=== PATIENT | male | born 1950 | race Caucasian/White ===

== ENCOUNTER 2022-08-20 17:00 | Inpatient (IN) ==
[2022-08-20] MEDS ORDERED: SODIUM CHLORIDE 0.9% 1000ML 1,000 ML IV ONE ×2 (17:46→18:21)
[2022-08-20 17:57] LABS: Alanine Aminotransferase 42 U/L (7-52); Albumin Globulin Ratio 1.3 (0.9-2); Albumin Level 3.7 gm/dl (3.4-5.0); Alkaline Phosphatase 70 U/L (34-104); Anion Gap 13 (3-11); Aspartate Aminotransferase 55 U/L (13-39); BUN Creatinine Ratio 15.7 (10-20); Bilirubin,Total 2.7 mg/dl (0.2-1.0); Blood Urea Nitrogen 40 mg/dl (6-23); Calcium 8.6 mg/dl (8.6-10.3); Carbon Dioxide 20 mmol/L (21-32); Chloride 97 mmol/L (98-107); Est GFR (African American) 27.6 ml/min; Est GFR (Non-African American) 23.8 ml/min; Globulin 2.8 gm/dl (2.5-4.0); Glucose 193 mg/dl (70-99(Fasting)); Potassium 4.5 mmol/L (3.5-5.1); Sodium 130 mmol/L (136-145); Total Protein 6.5 gm/dl (6.0-8.3)
[2022-08-20 18:08] LABS: Troponin I High Sensitivity 69.5 pg/ml (0-20)
[2022-08-20 18:10] LABS: Basophils # (auto) 0.03 K/uL (0-0.2); Basophils % (auto) 0.4 %; Hematocrit (blood only) 45.8 % (42.0-52.0); Hemoglobin 16.5 g/dl (14.0-18.0); Immature Granulocytes # (auto) 0.02 K/uL (0.01-0.20); Immature Granulocytes % (auto) 0.3 %; Lymphocytes # (auto) 0.51 K/uL (1.2-3.4); Lymphocytes % (auto) 7.1 %; Mean Corpuscular Hemoglobin 31.5 pg (25.0-34.0); Mean Corpuscular Volume 87.4 fL (80.0-100.0); Mean Platelet Volume 10.7 fL (9.4-12.4); Monocytes # (auto) 0.36 K/uL (0.11-0.59); Neutrophils # (auto) 6.28 K/uL (1.40-6.50); Neutrophils % (auto) 87.2 %; Platelet Count 59 K/uL (130-400); Platelet Estimate Decreased (Normal); RDW Coefficient of Variation 12.2 % (11.5-14.5); RDW Standard Deviation 39.4 fL (36.4-46.3); Red Blood Count 5.24 M/uL (4.70-6.10)
[2022-08-20] MEDS ORDERED: DOXYCYCLINE HYCLATE 100 MG in DEXTROSE 5% 100 ML IV STA (18:21)
[2022-08-20 18:22] LABS: INR 1.1 (0.9-1.1); Partial Thromboplastin Ratio 1.1; Partial Thromboplastin Time 30.8 Seconds (21.0-31.0); Prothrombin Time 12.1 Seconds (9.0-12.0)
[2022-08-20 18:57] LABS: Influenza A virus by PCR Negative (Neg); Influenza B virus by PCR Negative (Neg); RSV by PCR Negative (Neg); SARS CoV2 RNA(COVID-19) Ceph NEGATIVE (Negative)
--- NOTE | 2022-08-20 18:59 | XRay Report ---
XR chest 1V portable HISTORY: Chest pain, nonspecific COMPARISON: Chest 08/19/2022. FINDINGS: No pneumothorax. No pleural effusions. Left-sided pacemaker and poststernotomy changes. The cardiac silhouette is top normal in size. No new focal lung consolidations to suggest a pneumonia. N o evidence for pulmonary edema. A cardiac valve prosthesis is again noted. IMPRESSION: No significant change compared to the prior study. No acute process. ACT 112: Negative or not required by law. Electronically signed by: Abhishek Duran M.D. 08/20/2022 6:58 PM
--- NOTE | 2022-08-20 19:46 | CT Scan Report ---
Exam(s): CT ABDOMEN + PELVIS Without Contrast EXAM: CT Abdomen and Pelvis Without Intravenous Contrast CLINICAL HISTORY: Reason for exam: rosita. TECHNIQUE: Axial computed tomography images of the abdomen and pelvis without intravenous contrast. CTDI is 15.83 mGy and DLP is 1565 mGy-cm. Automated exposure control was utilized for the study. A dose lowering technique was utilized adhering to the principles of ALARA. COMPARISON: None FINDINGS: Lung bases: Unremarkable. No mass. No consolidation. Heart: Mild cardiomegaly. ABDOMEN: Liver: Hepatic steatosis. Gallbladder and bile ducts: Prior cholecystectomy. No ductal dilation. Pancreas: Unremarkable. No ductal dilation. Spleen: Mild splenomegaly. Adrenals: Unremarkable. No mass. Kidneys and ureters: Small nonobstructing right renal stone. No hydronephrosis or ureteral stone. Nonspecific mild bilateral perinephric fat stranding. Small bilateral renal cysts. Stomach and bowel: Diverticulosis without evidence of diverticulitis. No small bowel obstruction. Evaluation of the stomach is limited by underdistention. PELVIS: Appendix: Normal appendix. Bladder: Mild prominence of the bladder wall may be secondary to underdistention. Please correlate with urinalysis if concerned for cystitis. No stones. Reproductive: Calcifications in a mildly enlarged prostate. ABDOMEN and PELVIS: Intraperitoneal space: Unremarkable. No free air. No significant fluid collection. Bones/joints: No acute fracture. No dislocation. Soft tissues: Fat-containing bilateral inguinal hernias. Vasculature: Phleboliths in pelvis. No abdominal aortic aneurysm. Lymph nodes: Unremarkable. No enlarged lymph nodes. Tubes, lines and devices: Pacer wires partially visualized. Median sternotomy changes. Prosthetic aortic valve. IMPRESSION: 1. Mild prominence of the bladder wall may be secondary to underdistention. Please correlate with urinalysis if concerned for cystitis. 2. Small nonobstructing right renal stone. No hydronephrosis or ureteral stone. Electronically signed by: Bethany Zaidi M.D. 08/20/22 19:44 PM
--- NOTE | 2022-08-20 19:47 | CT Scan Report ---
Exam(s): CT HEAD Without Contrast EXAM: CT Head Without Intravenous Contrast CLINICAL HISTORY: Reason for exam: weakness. TECHNIQUE: Axial computed tomography images of the head/brain without intravenous contrast. CTDI is 15.83 mGy and DLP is 1565 mGy-cm. Automated exposure control was utilized for the study. A dose lowering technique was utilized adhering to the principles of ALARA. COMPARISON: None FINDINGS: Brain: No acute infarct or hemorrhage identified. No extra-axial fluid collection. No mass effect or midline shift. Scattered areas of hypoattenuation in the supratentorial white matter likely represent chronic small vessel ischemic changes. Ventricles and sulci: Prominence of the ventricles and sulci is likely secondary to cerebral volume loss. Bones: Normal. No bony lesion or acute fracture. Subcutaneous tissues: Normal. Sinuses: Mild mucosal thickening in the ethmoid air cells. Mastoid air cells: Normal. Orbits: Grossly unremarkable. Other: Atherosclerotic calcifications in the intracranial vasculature. IMPRESSION: 1. No acute intracranial abnormality. 2. Chronic small vessel ischemic changes and cerebral volume loss. Electronically signed by: Bethany Zaidi M.D. 08/20/22 19:46 PM
[2022-08-20] MEDS: MAGNESIUM SULFATE / D5W 1 GM/100 ML BAG IV SCH ×2 (20:19→21:22)
[2022-08-20 20:29] LABS: Procalcitonin 5.69 ng/ml (0-0.5)
[2022-08-20 20:35] LABS: Lyme Ab IgG w/WB Rflx Negative (Negative); Lyme Ab IgM w/WB Rflx Negative (Negative)
--- NOTE | 2022-08-20 20:39 | History & Physical Report ---
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 Anaplasmosis -platelet 59, Na 130, positive anaplasma smear -lactate 3.5 downtrending -procal 5.69 -CT head CXR wnl -tick panel pending -given doxycycline 100mg IV in ED, 2L NSS -continue doxycycline 100mg IV BID -trend cbc bmp Elevated Trop -noted at 69.5, likely demand ischemia -repeat pending Hypomagnesia -Mg 1.5 -received 2g in ED, recheck in am Bile salt induced diarrhea -recently constipated -continue cholestyramine when BM are more regular Concern BELEN -Creat 2.55 (last record 1.12 in 2018) -received 2L NSS in ED -CT A/P: Mild prominence of the bladder wall may be secondary to underdistention. Please correlate with urinalysis if concerned for cystitis. Small nonobstructing right renal stone. No hydronephrosis or ureteral stone. -recheck bmp in am HTN -hold metoprolol sarcubitral/valsartan given recent hypotension ANGELO -continue HS BIPAP FENa: regular Code Status: full DVT PPX: scds Dispo: med/Tamiko Gallagher D.O. 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 Patient [place] frequently gets ticks, found a tick on him 4-6 weeks ago. 2 weeks ago he woke up with muscle and joint aches, in 3 days the pain worsened enough to interfere with walking. He saw his PCP underwent testing for lyme, was negative. He noted his symptoms improved for 5 days, then returned, also noted constipation heacache and cough. His PCP ordered a CXR was negative, started him on albuterol inhaler and Zpack started yesterday. Patient states he required a wheelchair to get to the Xray. Yesterday his pacer detected afib, he recieved a phone call regarding the afib and was advised to go to the ED. Patient denies nausea vomitting SOB or rash. At this time he feels somewhat better but still weak. He has urinated in his pants 3 times in past few weeks given weakness and difficulty reaching the bathroom at night. Allergies Allergy/AdvReac Type Severity Reaction Status Date / Time No Known Allergies Allergy Unknown Verified 08/20/22 18:46 Home Medications Medication Instructions Recorded Confirmed Type aspirin 81 mg tablet,delayed 81 mg PO QAM 09/16/18 08/20/22 History release (Morris Low Dose Aspirin) cholecalciferol (vitamin D3) 25 1,000 unit PO QAM 09/16/18 08/20/22 History mcg (1,000 unit) tablet (Vitamin D3) cholestyramine (with sugar) 4 gram 4 g PO HS 09/16/18 08/20/22 History oral powder metoprolol succinate 25 mg 25 mg PO QAM 09/16/18 08/20/22 History tablet,extended release 24 hr (Toprol XL) omeprazole 20 mg tablet,delayed 20 mg PO QAM 09/16/18 08/20/22 History release albuterol sulfate 90 mcg/actuation 2 puff inhalation Q4H PRN 08/20/22 08/20/22 History aerosol inhaler Shortness Of Breath azithromycin 250 mg tablet 250 mg PO DAILY 08/20/22 08/20/22 History sacubitril 49 mg-valsartan 51 mg 1 tab PO BID 08/20/22 08/20/22 History tablet (Entresto) Past Med/Surg History Medical History Cellulitis GERD (gastroesophageal reflux disease) Hearing deficit History of aortic valve disease s/p AVR 2011 due to congenitally bicuspid valve. Hypertension Left bundle branch block (LBBB) Leg length discrepancy LVH (left ventricular hypertrophy) Severe concentric Myofascial pain Obesity On anticoagulant therapy eliquis daily d/t heart valve Sacroiliac joint disease Sleep apnea uses cpap Surgical History H/O endoscopic retrograde cholangiopancreatography 12/19/15 - MAC #3, ETT #8.0, HiLo Oral, Grade 1 View History of back surgery L4-S1 fusion History of carpal tunnel surgery of right wrist History of cholecystectomy 12/18/15 - MAC #4, ETT #7.5, Grade 2 View History of cochlear implant x2--RT EAR History of colonoscopy History of heart valve replacement aortic valve replacement - [place] - 2011; done because of bicuspid aortic valve History of open reduction and internal fixation (ORIF) procedure left ankle Hx of shoulder surgery left Family History Other No family history of adverse response to anesthesia Social History Smoking Status: Never smoker Cigarettes Per Day: QUIT 30 YEARS AGO; Second Hand Exposure: No; Do You Dip or Chew Tobacco: No; Hx Alcohol Use: No Hx Substance Use: No Preferred Language: Maori Communication Ability: Effective Motor Bus Driver Required: No Beliefs That Will Affect Care: None Current Living Situation: Spouse Feels Safe at Home: Yes Assistive Devices: CPAP, Denture - Upper and Glasses Physical Exam Constitutional: + ill appearing and cooperative Eyes: PERRL, conjunctivae normal, anicteric sclerae ENMT: external ear and nose normal, oropharynx normal Neck: trachea midline, no thyromegaly Respiratory: normal respiratory effort, lungs clear to auscultation Cardiovascular: Rate/Rhythm: + irregularly irregular Gastrointestinal (Abdomen): Inspection/Auscultation: abdomen normal to inspection Percussion/Palpation: abdomen soft; abdomen nontender Skin: no rashes, warm and dry Results & Data Results & Data Vital Signs (Past 12 Hours) Vital Signs Temp Pulse Pulse Resp BP BP Pulse Ox 08/20/22 19:25 82 18 95 08/20/22 18:18 109/76 08/20/22 17:53 92 H 08/20/22 18:08 98 08/20/22 18:06 89 18 91/52 L 99 08/20/22 17:03 37.4 C 102 H 20 91/69 L 94 O2 Del Method 08/20/22 19:25 08/20/22 18:18 08/20/22 17:53 05/04/23 18:08 Room Air 08/20/22 18:06 Room Air 08/20/22 17:03 Room Air Supervising Physician Co-Signing Physician Notes Patient seen and examined, chart reviewed, case discussed with Dr. Jay and I agree with the assessment and plan as documented above. In brief, Mr. Sargent is a 72-year-old male with history of atrial fibrillation status post pacemaker placement, ANGELO and GERD presenting with 2 weeks of muscle pain, joint aches as well as fever, chills and sweats. He was seen in clinic yesterday and was prescribed a Z-Jesus and albuterol inhaler for complaint of cough as well. In the emergency room patient is afebrile, tachycardic with heart rate of 102, blood pressure borderline low at 91/52, adequate oxygenation on room air with no respiratory distress On exam he is ill in appearance, answering questions appropriately Skinwarm, dry, no rash HEENTmoist mucous membranes, no JVD, neck supple, pupils equal round and react nisha to light Heart+ S1, S2 irregularly irregular LungsCTA bilaterally with no rales/rhonchi/wheezing. Cough induced by deep breathing Abdomenpositive bowel sounds, soft, nontender, nondistended Extremitieswarm, well-perfused, no clubbing/cyanosis or edema Labs and images reviewed. Significant for thrombocytopenia with platelets = 59, lymphopenia Hyponatremia sodium = 130, CO2 = 20, BUN = 40, creatinine = 2.55, anion gap = 13, lactate = 2.6, T. bili = 2.7, AST = 55, troponin = 88.3, procalcitonin = 5.69 Anaplasma smear suggestive for intracytoplasmic neutrophilic inclusions CT abdomen and pelvis with possible cystitis. Small nonobstructing right renal stone CT head with chronic small vessel ischemic changes Chest x-ray with no acute process 72-year-old male with anaplasmosis. Presently afebrile, blood pressure mildly low at 97/64 Labs significant for thrombocytopenia, BELEN with BUN of 40, creatinine of 2.55 from normal baseline, elevated lactate, elevated AST and T. bili as well as elevated procalcitonin Treatment with doxycycline Check urinalysis Repeat troponin Continue IV fluids Hold antihypertensive agents for now given borderline low blood pressure (Entresto and metoprolol) Guaifenesin as needed for cough Remainder of plan as above Resident Activity Tracking Resident Involvement: Resident Care Provided Care Provided: Adult Hospital Medicine
[2022-08-20] MEDS ORDERED: VALSARTAN/SACUBITRIL 51/49 MG TAB PO SCH (21:00)
--- NOTE | 2022-08-20 21:39 | Emergency Department Note ---
History of Present Illness General Chief complaint: Arrhythmia/Palpitations Stated complaint: REF BY SANDRITA JAMESON Time Seen by Provider: 08/20/22 17:45 History of Present Illness Provider complaint: Chills atrial fibrillation Onset (ago): week(s) 2 72-year-old male presents emergency department for chills and atrial fibrillation. Patient reports that 2 weeks ago he started having body aches and chills. He states he went to his doctor who did an x-ray COVID test that was negative. He states he was started on a Z-Jesus. Patient states he has not felt much better. 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 Patient reports overall mellitus. He reports no headache. No chest pain or difficulty breathing. Mild cough. No hemoptysis. No congestion. No nausea vomiting or diarrhea. No abdominal pain. Patient does report he had a tick on him recently [place] Home Medications Medication Instructions Recorded Confirmed Type aspirin 81 mg tablet,delayed 81 mg PO QAM 09/16/18 08/20/22 History release (Morris Low Dose Aspirin) cholecalciferol (vitamin D3) 25 1,000 unit PO QAM 09/16/18 08/20/22 History mcg (1,000 unit) tablet (Vitamin D3) cholestyramine (with sugar) 4 gram 4 g PO HS 09/16/18 08/20/22 History oral powder metoprolol succinate 25 mg 25 mg PO QAM 09/16/18 08/20/22 History tablet,extended release 24 hr (Toprol XL) omeprazole 20 mg tablet,delayed 20 mg PO QAM 09/16/18 08/20/22 History release albuterol sulfate 90 mcg/actuation 2 puff inhalation Q4H PRN 08/20/22 08/20/22 History aerosol inhaler Shortness Of Breath azithromycin 250 mg tablet 250 mg PO DAILY 08/20/22 08/20/22 History sacubitril 49 mg-valsartan 51 mg 1 tab PO BID 08/20/22 08/20/22 History tablet (Entresto) Allergies Allergy/AdvReac Type Severity Reaction Status Date / Time No Known Allergies Allergy Unknown Verified 08/20/22 18:46 Past Med/Surg History Medical History Cellulitis GERD (gastroesophageal reflux disease) Hearing deficit History of aortic valve disease s/p AVR 2011 due to congenitally bicuspid valve. Hypertension Left bundle branch block (LBBB) Leg length discrepancy LVH (left ventricular hypertrophy) Severe concentric Myofascial pain Obesity On anticoagulant therapy eliquis daily d/t heart valve Sacroiliac joint disease Sleep apnea uses cpap Surgical History H/O endoscopic retrograde cholangiopancreatography 12/19/15 - MAC #3, ETT #8.0, HiLo Oral, Grade 1 View History of back surgery L4-S1 fusion History of carpal tunnel surgery of right wrist History of cholecystectomy 12/18/15 - MAC #4, ETT #7.5, Grade 2 View History of cochlear implant x2--RT EAR History of colonoscopy History of heart valve replacement aortic valve replacement - Nadia - 2011; done because of bicuspid aortic valve History of open reduction and internal fixation (ORIF) procedure left ankle Hx of shoulder surgery left Family History Other No family history of adverse response to anesthesia Social History Smoking Status: Never smoker Cigarettes Per Day: QUIT 30 YEARS AGO; Second Hand Exposure: No; Do You Dip or Chew Tobacco: No; Hx Alcohol Use: No Hx Substance Use: No Preferred Language: Bulgarian Communication Ability: Effective Pole Cutter Required: No Beliefs That Will Affect Care: None Current Living Situation: Spouse Feels Safe at Home: Yes Assistive Devices: CPAP, Denture - Upper and Glasses Physical Exam Vital Signs Vital Signs - 24 hr 08/20/22 17:03 08/20/22 18:06 08/20/22 18:08 Temperature 37.4 C Temperature Source Temporal Artery Scan Pulse Rate 102 H Pulse Rate [Apical] 89 Pulse Rhythm Irregular Respiratory Rate 20 18 Respiratory Effort / Characteristics Non-Labored Spontaneous Respiratory Depth Normal Respiratory Pattern Regular Blood Pressure 91/69 L Blood Pressure [Right Arm] 91/52 L Blood Pressure Mean 76 Blood Pressure Mean [Right Arm] 65 Blood Pressure Position Sitting Pulse Oximetry 94 99 98 Oxygen Delivery Method Room Air Room Air Room Air Sepsis Recent Fever Within 48 Hours Yes Sepsis New/Unexplained Change in Mental Status No Sepsis Action Taken by Nursing No Action Required 08/20/22 17:53 08/20/22 18:18 08/20/22 19:25 Temperature Temperature Source Pulse Rate 92 H 82 Pulse Rate [Apical] Pulse Rhythm Respiratory Rate 18 Respiratory Effort / Characteristics Respiratory Depth Respiratory Pattern Blood Pressure 109/76 Blood Pressure [Right Arm] Blood Pressure Mean 87 Blood Pressure Mean [Right Arm] Blood Pressure Position Pulse Oximetry 95 Oxygen Delivery Method Sepsis Recent Fever Within 48 Hours Sepsis New/Unexplained Change in Mental Status Sepsis Action Taken by Nursing Physical Exam HENT: Exam performed. - Head: Normocephalic and atraumatic. - Right Ear: External ear normal. No mastoid erythema - Left Ear: External ear normal. No mastoid erythema EYES: Conjunctivae and EOM are normal. Right eye exhibits no discharge. Left eye exhibits no discharge. No scleral icterus. NECK: Normal range of motion. Neck supple. No JVD present. No tracheal deviation and normal range of motion present. CV: Normal rate, irregular rhythm, normal heart sounds and intact distal pulses. There is no peripheral edema. Palpable radial pulses bue. PULM/CHEST: Effort normal and breath sounds normal. No respiratory distress. No stridor. He has no wheezes. He has no rales. ABD: The abdomen is soft. There is no tenderness. There is no rebound, no guarding. MUSC/SKEL: Normal range of motion. There is no peripheral edema, tenderness or deformity. LYMPH: No cervical adenopathy. NEURO: He is alert and oriented to person, place, and time. He has normal streng th. No cranial nerve deficit or sensory deficit. Coordination and gait normal. GCS eye subscore is 4. GCS verbal subscore is 5. GCS motor subscore is 6. Cerebellar tests wnl. SKIN: Skin is warm and dry. He is not diaphoretic. PSYCH: He has a normal mood and affect. Behavior is normal. Judgment and thought content normal. Course Course 1744: The patient was evaluated in room B2. A complete history and physical exam was performed Cardiac monitoring: An order was placed for continuous cardiac monitoring. The monitor shows a rate of 80 with sinus rhythm interpreted by me Patient was found to be tachycardic and hypotensive. Sepsis protocol was initiated. 1820: Vital signs improved with IV fluids. Patient's lactic acid was elevated. Labs show thrombocytopenia and mild transaminitis. Given this and the history of tick bite the patient will be treated empirically for anaplasmosis with doxycycline. 100 mg IV doxycycline ordered for the patient. Patient's creatinine is elevated will obtain CT abdomen pelvis without contrast. 2000: Vital signs stable. White blood cell count 7.2 hemoglobin 16.5 platelet count was decreased. Creatinine 2.55. Magnesium 1.5. Magnesium repletion started in the emergency department. 30 cc/kg IV fluids ordered. Troponin elevation is 69.5. 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 [facility]. Administered Medications Sodium Chloride (Nss) 500 mls @ 125 mls/hr IV .Q4H JES Stop: 09/19/22 18:29 Last Admin: 08/20/22 21:44 Dose: 125 mls/hr Documented By: DEEDEE Discontinued Medications Sodium Chloride (Nss 1000ml) 1,000 mls @ 999 mls/hr IV .Q1H1M ONE Stop: 08/20/22 18:46 Last Infusion: 08/20/22 19:30 Dose: 0 mls/hr Documented By: Admin: 08/20/22 18:05 Dose: 999 mls/hr Documented By: ELIZABETH Sodium Chloride (Nss 1000ml) 1,000 mls @ 999 mls/hr IV .Q1H1M ONE Stop: 08/20/22 19:21 Last Admin: 08/20/22 19:27 Dose: 999 mls/hr Documented By: AGUSTÍN Doxycycline Hyclate 100 mg/ (Dextrose) 110 mls @ 50 mls/hr IV NOW STA Stop: 08/20/22 20:32 Last Admin: 08/20/22 19:42 Dose: 50 mls/hr Documented By: AGUSTÍN Magnesium Sulfate/Dextrose (Magnesium Sulfate / D5w) 1 gm in 100 mls @ 100 mls/hr IV Q1H JES Stop: 08/20/22 21:09 Last Admin: 08/20/22 21:22 Dose: 100 mls/hr Documented By: Infusion: 08/20/22 21:19 Dose: 100 mls/hr Documented By: Admin: 08/20/22 20:19 Dose: 100 mls/hr Documented By: MARCELO Critical Care Time Critical Care Time: Yes Total Critical Care Time: 47 I have personally spent greater than 47 minutes of critical care time in the direct management of this patient. This includes bedside care, interpretation of diagnostic studies, and testing, discussion with consultants, patient, and family members, and other required patient management activities. This 47 min utes is in excess of all separately billable procedures. Medical Decision Making Laboratory Data Attestation: I reviewed the patient's lab results. 08/20/22 17:17 08/20/22 17:17 Lab Results 08/20/22 08/20/22 08/20/22 Range/Units 17:17 17:17 17:17 WBC 7.20 (4.8-10.8) K/ul RBC 5.24 (4.70-6.10) M/uL Hgb 16.5 (14.0-18.0) g/dl Hct 45.8 (42.0-52.0) % MCV 87.4 (80.0-100.0) fL MCH 31.5 (25.0-34.0) pg MCHC 36.0 (32.0-36.0) g/dL RDW Std Deviation 39.4 (36.4-46.3) fL RDW Coeff of Darcy 12.2 (11.5-14.5) % Plt Count 59 L (130-400) K/uL MPV 10.7 (9.4-12.4) fL Immature Gran % (Auto) 0.3 % Neut % (Auto) 87.2 % Lymph % (Auto) 7.1 % [place] % (Auto) 5.0 % Eos % (Auto) 0.0 % Baso % (Auto) 0.4 % Neut # (Auto) 6.28 (1.40-6.50) K/uL Lymph # (Auto) 0.51 L (1.2-3.4) K/uL [place] # (Auto) 0.36 (0.11-0.59) K/uL Eos # (Auto) 0.00 (0-0.50) K/uL Baso # (Auto) 0.03 (0-0.2) K/uL Immature Gran # (Auto) 0.02 (0.01-0.20) K/uL Platelet Estimate Decreased L (Normal) PT 12.1 H (9.0-12.0) Seconds INR 1.1 (0.9-1.1) APTT 30.8 (21.0-31.0) Seconds PTT Ratio 1.1 Sodium 130 L (136-145) mmol/L Potassium 4.5 (3.5-5.1) mmol/L Chloride 97 L (98-107) mmol/L Carbon Dioxide 20 L (21-32) mmol/L Anion Gap 13 H (3-11) BUN 40 H (6-23) mg/dl Creatinine 2.55 H (0.6-1.4) mg/dl Est Cr Clr Drug Dosing Not Reportable Est GFR ( Amer) 27.6 ml/min Est GFR (Non-Af Amer) 23.8 ml/min BUN/Creatinine Ratio 15.7 (10-20) Glucose 193 H (70-99(Fasting)) mg/dl Lactate (0.4-2.0) mmol/L Calcium 8.6 (8.6-10.3) mg/dl Magnesium (1.7-2.4) mg/dl Total Bilirubin 2.7 H (0.2-1.0) mg/dl AST 55 H (13-39) U/L ALT 42 (7-52) U/L Alkaline Phosphatase 70 (34-104) U/L Troponin I High Sens 69.5 H* (0-20) pg/ml Total Protein 6.5 (6.0-8.3) gm/dl Albumin 3.7 (3.4-5.0) gm/dl Globulin 2.8 (2.5-4.0) gm/dl Albumin/Globulin Ratio 1.3 (0.9-2) Procalcitonin Anaplasma Smear Babesia Smear Lyme Disease IgG Ab Lyme Disease IgM Ab SARS-CoV-2 (PCR) (Negative) Influenza Type A (PCR) (Neg) Influenza Type B (PCR) (Neg) RSV (RT-PCR) (Neg) 08/20/22 08/20/22 08/20/22 Range/Units 17:46 17:46 17:49 WBC (4.8-10.8) K/ul RBC (4.70-6.10) M/uL Hgb (14.0-18.0) g/dl Hct (42.0-52.0) % MCV (80.0-100.0) fL MCH (25.0-34.0) pg MCHC (32.0-36.0) g/dL RDW Std Deviation (36.4-46.3) fL RDW Coeff of Darcy (11.5-14.5) % Plt Count (130-400) K/uL MPV (9.4-12.4) fL Immature Gran % (Auto) % Neut % (Auto) % Lymph % (Auto) % [place] % (Auto) % Eos % (Auto) % Baso % (Auto) % Neut # (Auto) (1.40-6.50) K/uL Lymph # (Auto) (1.2-3.4) K/uL [place] # (Auto) (0.11-0.59) K/uL Eos # (Auto) (0-0.50) K/uL Baso # (Auto) (0-0.2) K/uL Immature Gran # (Auto) (0.01-0.20) K/uL Platelet Estimate (Normal) PT (9.0-12.0) Seconds INR (0.9-1.1) APTT (21.0-31.0) Seconds PTT Ratio Sodium (136-145) mmol/L Potassium (3.5-5.1) mmol/L Chloride (98-107) mmol/L Carbon Dioxide (21-32) mmol/L Anion Gap (3-11) BUN (6-23) mg/dl Creatinine (0.6-1.4) mg/dl Est Cr Clr Drug Dosing Est GFR ( Amer) ml/min Est GFR (Non-Af Amer) ml/min BUN/Creatinine Ratio (10-20) Glucose (70-99(Fasting)) mg/dl Lactate 3.5 H* (0.4-2.0) mmol/L Calcium (8.6-10.3) mg/dl Magnesium (1.7-2.4) mg/dl Total Bilirubin (0.2-1.0) mg/dl AST (13-39) U/L ALT (7-52) U/L Alkaline Phosphatase (34-104) U/L Troponin I High Sens (0-20) pg/ml Total Protein (6.0-8.3) gm/dl Albumin (3.4-5.0) gm/dl Globulin (2.5-4.0) gm/dl Albumin/Globulin Ratio (0.9-2) Procalcitonin Cancelled Anaplasma Smear See Comment A Babesia Smear See Comment Lyme Disease IgG Ab Cancelled Lyme Disease IgM Ab Cancelled SARS-CoV-2 (PCR) (Negative) Influenza Type A (PCR) (Neg) Influenza Type B (PCR) (Neg) RSV (RT-PCR) (Neg) 08/20/22 08/20/22 08/20/22 Range/Units 18:17 18:37 19:27 WBC (4.8-10.8) K/ul RBC (4.70-6.10) M/uL Hgb (14.0-18.0) g/dl Hct (42.0-52.0) % MCV (80.0-100.0) fL MCH (25.0-34.0) pg MCHC (32.0-36.0) g/dL RDW Std Deviation (36.4-46.3) fL RDW Coeff of Darcy (11.5-14.5) % Plt Count (130-400) K/uL MPV (9.4-12.4) fL Immature Gran % (Auto) % Neut % (Auto) % Lymph % (Auto) % [place] % (Auto) % Eos % (Auto) % Baso % (Auto) % Neut # (Auto) (1.40-6.50) K/uL Lymph # (Auto) (1.2-3.4) K/uL [place] # (Auto) (0.11-0.59) K/uL Eos # (Auto) (0-0.50) K/uL Baso # (Auto) (0-0.2) K/uL Immature Gran # (Auto) (0.01-0.20) K/uL Platelet Estimate (Normal) PT (9.0-12.0) Seconds INR (0.9-1.1) APTT (21.0-31.0) Seconds PTT Ratio Sodium (136-145) mmol/L Potassium (3.5-5.1) mmol/L Chloride (98-107) mmol/L Carbon Dioxide (21-32) mmol/L Anion Gap (3-11) BUN (6-23) mg/dl Creatinine (0.6-1.4) mg/dl Est Cr Clr Drug Dosing Est GFR ( Amer) ml/min Est GFR (Non-Af Amer) ml/min BUN/Creatinine Ratio (10-20) Glucose (70-99(Fasting)) mg/dl Lactate (0.4-2.0) mmol/L Calcium (8.6-10.3) mg/dl Magnesium 1.5 L (1.7-2.4) mg/dl Total Bilirubin (0.2-1.0) mg/dl AST (13-39) U/L ALT (7-52) U/L Alkaline Phosphatase (34-104) U/L Troponin I High Sens (0-20) pg/ml Total Protein (6.0-8.3) gm/dl Albumin (3.4-5.0) gm/dl Globulin (2.5-4.0) gm/dl Albumin/Globulin Ratio (0.9-2) Procalcitonin 5.69 H Anaplasma Smear Babesia Smear Lyme Disease IgG Ab Negative Lyme Disease IgM Ab Negative SARS-CoV-2 (PCR) NEGATIVE (Negative) Influenza Type A (PCR) Negative (Neg) Influenza Type B (PCR) Negative (Neg) RSV (RT-PCR) Negative (Neg) 08/20/22 Range/Units 19:48 WBC (4.8-10.8) K/ul RBC (4.70-6.10) M/uL Hgb (14.0-18.0) g/dl Hct (42.0-52.0) % MCV (80.0-100.0) fL MCH (25.0-34.0) pg MCHC (32.0-36.0) g/dL RDW Std Deviation (36.4-46.3) fL RDW Coeff of Darcy (11.5-14.5) % Plt Count (130-400) K/uL MPV (9.4-12.4) fL Immature Gran % (Auto) % Neut % (Auto) % Lymph % (Auto) % [place] % (Auto) % Eos % (Auto) % Baso % (Auto) % Neut # (Auto) (1.40-6.50) K/uL Lymph # (Auto) (1.2-3.4) K/uL [place] # (Auto) (0.11-0.59) K/uL Eos # (Auto) (0-0.50) K/uL Baso # (Auto) (0-0.2) K/uL Immature Gran # (Auto) (0.01-0.20) K/uL Platelet Estimate (Normal) PT (9.0-12.0) Seconds INR (0.9-1.1) APTT (21.0-31.0) Seconds PTT Ratio Sodium (136-145) mmol/L Potassium (3.5-5.1) mmol/L Chloride (98-107) mmol/L Carbon Dioxide (21-32) mmol/L Anion Gap (3-11) BUN (6-23) mg/dl Creatinine (0.6-1.4) mg/dl Est Cr Clr Drug Dosing Est GFR ( Amer) ml/min Est GFR (Non-Af Amer) ml/min BUN/Creatinine Ratio (10-20) Glucose (70-99(Fasting)) mg/dl Lactate 2.6 H* (0.4-2.0) mmol/L Calcium (8.6-10.3) mg/dl Magnesium (1.7-2.4) mg/dl Total Bilirubin (0.2-1.0) mg/dl AST (13-39) U/L ALT (7-52) U/L Alkaline Phosphatase (34-104) U/L Troponin I High Sens (0-20) pg/ml Total Protein (6.0-8.3) gm/dl Albumin (3.4-5.0) gm/dl Globulin (2.5-4.0) gm/dl Albumin/Globulin Ratio (0.9-2) Procalcitonin Anaplasma Smear Babesia Smear Lyme Disease IgG Ab Lyme Disease IgM Ab SARS-CoV-2 (PCR) (Negative) Influenza Type A (PCR) (Neg) Influenza Type B (PCR) (Neg) RSV (RT-PCR) (Neg) Imaging Data Attestation: I personally reviewed and interpreted this imaging study as follows: My Impression: Chest x-ray negative. Airway clear. No pneumothorax. No consolidation. No cardiomegaly or cephalization.. No free air under the diaphragm. No fractures of the skeletal structures. Radiologist's Impression: Chest X-Ray 08/20/22 17:07 XR chest 1V portable HISTORY: Chest pain, nonspecific COMPARISON: Chest 08/19/2022. FINDINGS: No pneumothorax. No pleural effusions. Left-sided pacemaker and poststernotomy changes. The cardiac silhouette is top normal in size. No new focal lung consolidations to suggest a pneumonia. No evidence for pulmonary edema. A cardiac valve prosthesis is again noted. IMPRESSION: No significant change compared to the prior study. No acute process. ACT 112: Negative or not required by law. Electronically signed by: Abhishek Duran M.D. 08/20/2022 6:[address] 08/20/22 17:46 Exam(s): CT HEAD Without Contrast EXAM: CT Head Without Intravenous Contrast CLINICAL HISTORY: Reason for exam: weakness. TECHNIQUE: Axial computed tomography images of the head/brain without intravenous contrast. CTDI is 15.83 mGy and DLP is 1565 mGy-cm. Automated exposure control was utilized for the study. A dose lowering technique was utilized adhering to the principles of ALARA. COMPARISON: None FINDINGS: Brain: No acute infarct or hemorrhage identified. No extra-axial fluid collection. No mass effect or midline shift. Scattered areas of hypoattenuation in the supratentorial white matter likely represent chronic small vessel ischemic changes. Ventricles and sulci: Prominence of the ventricles and sulci is likely secondary to cerebral volume loss. Bones: Normal. No bony lesion or acute fracture. Subcutaneous tissues: Normal. Sinuses: Mild mucosal thickening in the ethmoid air cells. Mastoid air cells: Normal. Orbits: Grossly unremarkable. Other: Atherosclerotic calcifications in the intracranial vasculature. IMPRESSION: 1. No acute intracranial abnormality. 2. Chronic small vessel ischemic changes and cerebral volume loss. Electronically signed by: Bethany Zaidi M.D. 08/20/22 19:46 PM Abdomen/Pelvis CT 08/20/22 18:02 Exam(s): CT ABDOMEN + PELVIS Without Contrast EXAM: CT Abdomen and Pelvis Without Intravenous Contrast CLINICAL HISTORY: Reason for exam: belen. TECHNIQUE: Axial computed tomography images of the abdomen and pelvis without intravenous contrast. CTDI is 15.83 mGy and DLP is 1565 mGy-cm. Automated exposure control was utilized for the study. A dose lowering technique was utilized adhering to the principles of ALARA. COMPARISON: None FINDINGS: Lung bases: Unremarkable. No mass. No consolidation. Heart: Mild cardiomegaly. ABDOMEN: Liver: Hepatic steatosis. Gallbladder and bile ducts: Prior cholecystectomy. No ductal dilation. Pancreas: Unremarkable. No ductal dilation. Spleen: Mild splenomegaly. Adrenals: Unremarkable. No mass. Kidneys and ureters: Small nonobstructing right renal stone. No hydronephrosis or ureteral stone. Nonspecific mild bilateral perinephric fat stranding. Small bilateral renal cysts. Stomach and bowel: Diverticulosis without evidence of diverticulitis. No small bowel obstruction. Evaluation of the stomach is limited by underdistention. PELVIS: Appendix: Normal appendix. Bladder: Mild prominence of the bladder wall may be secondary to underdistention. Please correlate with urinalysis if concerned for cystitis. No stones. Reproductive: Calcifications in a mildly enlarged prostate. ABDOMEN and PELVIS: Intraperitoneal space: Unremarkable. No free air. No significant fluid collection. Bones/joints: No acute fracture. No dislocation. Soft tissues: Fat-containing bilateral inguinal hernias. Vasculature: Phleboliths in pelvis. No abdominal aortic aneurysm. Lymph nodes: Unremarkable. No enlarged lymph nodes. Tubes, lines and devices: Pacer wires partially visualized. Median sternotomy changes. Prosthetic aortic valve. IMPRESSION: 1. Mild prominence of the bladder wall may be secondary to underdistention. Please correlate with urinalysis if concerned for cystitis. 2. Small nonobstructing right renal stone. No hydronephrosis or ureteral stone. Electronically signed by: Bethany Zaidi M.D. 08/20/22 19:44 PM ECG Data Attestation: I personally reviewed and interpreted this ECG as follows: Additional Comments: Atrial fibrillation with a rate of 95. QRS [address] elevation or ST depression. [facility] Narrative 1745: The patient was evaluated in room B2. A complete history and physical exam was performed Cardiac monitoring: An order was placed for continuous cardiac monitoring. The monitor shows a rate of 80 with sinus rhythm interpreted by me Patient was found to be tachycardic and hypotensive. Sepsis protocol was initiated. 0: Vital signs improved with IV fluids. Patient's lactic acid was elevated. Labs show thrombocytopenia and mild transaminitis. Given this and the history of tick bite the patient will be treated empirically for anaplasmosis with doxycycline. 100 mg IV doxycycline ordered for the patient. Patient's creatinine is elevated will obtain CT abdomen pelvis without contrast. 2000: Vital signs stable. White blood cell count 7.2 hemoglobin 16.5 platelet count was decreased. Creatinine 2.55. Magnesium 1.5. Magnesium repletion started in the emergency department. 30 cc/kg IV fluids ordered. Troponin elevation is 69.5. 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 [facility]. Impression & Plan Anaplasmosis, Sepsis, BELEN (acute kidney injury), Elevated troponin Discharge Plan Visit Data Chief Complaint: Arrhythmia/Palpitations Stated Complaint: REF BY DOC, A-FIB ED Provider: Lonnie Becerra Discharge Problem: Anaplasmosis, Sepsis, BELEN (acute kidney injury), Elevated troponin Patient Disposition: Admitted As Inpatient Discharge Instructions Interventions: ED Discharge Assessment Last Done: 08/20/22 22:13
[2022-08-20] MEDS: SODIUM CHLORIDE 0.9% 500 ML IV SCH (21:44)
[2022-08-20] MEDS ORDERED: POLYETHYLENE (MIRALAX) 17 GM PACK PO PRN (22:06)
[2022-08-20] MEDS ORDERED: ACETAMINOPHEN 325 MG TAB PO PRN (22:06)
[2022-08-20] MEDS: CHOLESTYRAMINE LIGHT 4 GM PKT PO SCH (23:58)
--- NOTE | 2022-08-21 02:10 | Billing Data ---
Date of Service August 20, 2022 Coding Level of Care Code 15593 INT INP/OBS CARE
[2022-08-21] MEDS: SODIUM CHLORIDE 0.9% 500 ML IV SCH (03:58)
[2022-08-21] MEDS ORDERED: SODIUM CHLORIDE 0.9% 1000ML 1,000 ML IV SCH (04:00)
[2022-08-21] MEDS: SODIUM CHLORIDE 0.9% 1000ML 1,000 ML IV SCH ×2 (04:25→12:15)
[2022-08-21 06:22] LABS: Basophils # (auto) 0.02 K/uL (0-0.2); Basophils % (auto) 0.4 %; Eosinophils # (auto) 0.01 K/uL (0-0.50); Eosinophils % (auto) 0.2 %; Hematocrit (blood only) 40.4 % (42.0-52.0); Hemoglobin 14.1 g/dl (14.0-18.0); Immature Granulocytes # (auto) 0.01 K/uL (0.01-0.20); Immature Granulocytes % (auto) 0.2 %; Lymphocytes # (auto) 0.56 K/uL (1.2-3.4); Lymphocytes % (auto) 10.3 %; Mean Corpuscular Hemoglobin 31.1 pg (25.0-34.0); Mean Corpuscular Hgb Conc 34.9 g/dL (32.0-36.0); Mean Corpuscular Volume 89.2 fL (80.0-100.0); Mean Platelet Volume 11.3 fL (9.4-12.4); Monocytes # (auto) 0.59 K/uL (0.11-0.59); Monocytes % (auto) 10.8 %; Neutrophils # (auto) 4.27 K/uL (1.40-6.50); Neutrophils % (auto) 78.1 %; Platelet Count 44 K/uL (130-400); RDW Coefficient of Variation 12.2 % (11.5-14.5); RDW Standard Deviation 39.9 fL (36.4-46.3); Red Blood Count 4.53 M/uL (4.70-6.10); White Blood Count 5.46 K/ul (4.8-10.8)
[2022-08-21 06:41] LABS: Albumin Globulin Ratio 1.3 (0.9-2); BUN Creatinine Ratio 18.4 (10-20); Bilirubin,Total 1.9 mg/dl (0.2-1.0); Calcium 7.7 mg/dl (8.6-10.3); Creatinine Clr Calc Pharmacy 34.7 ml/min; Est GFR (African American) 32.4 ml/min; Globulin 2.4 gm/dl (2.5-4.0); Potassium 3.8 mmol/L (3.5-5.1); Total Protein 5.4 gm/dl (6.0-8.3)
[2022-08-21 06:53] LABS: Troponin I High Sensitivity 67.1 pg/ml (0-20)
[2022-08-21] MEDS: guaiFENesin 600 MG TABCR PO SCH ×2 (07:49→20:54)
[2022-08-21] MEDS: CHOLECALCIFEROL 1,000 UNITS 25 MCG TAB PO SCH (07:50)
[2022-08-21] MEDS: PANTOprazole 40 MG TAB PO SCH (07:50)
[2022-08-21] MEDS: ASPIRIN 81 MG ECTAB PO SCH (07:50)
[2022-08-21] MEDS ORDERED: DOXYCYCLINE HYCLATE 100 MG in DEXTROSE 5% 100 ML IV SCH (08:00)
[2022-08-21] MEDS ORDERED: METOPROLOL SUCC 25MG EXT REL TAB PO SCH (09:00)
[2022-08-21 09:27] LABS: Appearance Urine Turbid (Clear); Bacteria Urine Automated Negative (Negative); Bilirubin Urine Negative (Negative); Blood Urine Negative (Negative); Color Urine Dark Yellow; Epithelial Cell Urine Auto >30 /lpf (0-5); Glucose Urine UA Negative (Negative); Ketones Urine Negative (Negative); Leukocyte Esterase Urine Trace (Negative); Nitrite Urine Negative (Negative); Protein Urine 1+ (Negative); Specific Gravity Urine 1.015 (1.000-1.030); Urobilinogen Urine Negative (Negative)
[2022-08-21 09:53] LABS: RBC Urine Automated 0-4 /hpf (0-4)
--- NOTE | 2022-08-21 10:19 | Medical Student Progress Note ---
Date of Service August 21, 2022 Assessment & Plan (1) Anaplasmosis: (2) BELEN (acute kidney injury): (3) Elevated troponin: Plan 1. Anaplasmosis - Positive anaplasma smear, tick panel pending - Lactate 2.6, continues downtrending - CT head, CXR both normal - Continue doxycycline 100 mg IV (?) BID x 14-21 days 2. Elevated troponin - 88.3 on admission, most recently at 67.1, downtrending - Likely demand ischemia - Repeat pending 3. Hypomagnesemia - Was 1.5, received 2g in ED, most recent Mg 2.0 - Continue to monitor 4. Elevated creatinine - Creatinine 2.55 (last record 1.12 in 2019, concern for BELEN) - Received 2L NSS in ED - CT A/P with evidence of mild bladder prominence and small nonobstructing R stone, otherwise normal - Current I & O with net positive of 3.53 L - Repeat BMP to continue monitoring kidney function 5. ANGELO - Patient is adherent with BIPAP use HS - Continue HS BIPAP regimen unchanged FENa: Regular Code Status: Full DVT PPX: SCDs Dispo: Med/tele Admission and Anticipated Discharge Date Admission Date: August 20, 2022 Supervising Attestation Medical Student Supervision Note: I was personally present during medical student patient encounter and independently interviewed and examined the patient and verified the banda history and physical, reviewed labs and image studies, discussed the case with Wen Wiseman and agree with the findings and care plan. Anaplasmosis - continue IV doxycycline ARF - fluid resuscitation. UA checked - No RBC. CT with no sign of obstruction. Subjective 08/21/22: At assessment, patient reports feeling much better. He reports a significant improvement in symptoms, including decreased pain and improved mobility. He has been constipated for approximately one week but had a large, solid, non painful bowel movement this morning. The patient denies feeling nauseated, vomiting, or having a rash. He would like to get up out of bed and get some activity in, whether it is walking around or sitting in a chair. Review of Systems Constitutional: + fever, + chills, + sweats, + body aches, + weakness and + insomnia Gastrointestinal: + change in bowel habits, + change in stools and + diarrhea/loose stools; no constipation Musculoskeletal: + myalgia and + body aches Neurologic: no problem reported Physical Exam Constitutional: well developed, well nourished, healthy appearing, well groomed and cooperative; no acute distress Eyes: PERRL, conjunctivae normal, anicteric sclerae Neck: trachea midline, no thyromegaly normal visual inspection Respiratory: normal respiratory effort, lungs clear to auscultation able to speak in complete sentences Auscultation: lungs clear to auscultation bilaterally Cardiovascular: Rate/Rhythm: + irregularly irregular Extremities: normal capillary refill; no edema Gastrointestinal (Abdomen): normal bowel sounds, soft, nontender, no hepatosplenomegaly Percussion/Palpation: abdomen nontender Skin: no rashes, warm and dry Psychiatric: A+Ox3, euthymic affect Results & Data Vital Signs (Past 12 Hours) Vital Signs Temp Pulse Pulse Pulse Resp BP Pulse Ox 08/21/22 07:55 36.3 C L 68 14 103/69 95 08/20/22 23:16 72 08/21/22 01:06 37.1 C 73 73 18 98/61 L 94 08/21/22 01:06 08/21/22 03:42 36.8 C 69 18 92/59 L 93 08/20/22 23:09 17 95 08/20/22 21:32 79 18 97/64 L 96 Pulse Ox O2 Del Method O2 Del Method O2 Flow Rate 08/21/22 07:55 Room Air 08/20/22 23:16 08/21/22 01:06 Room Air 08/21/22 01:06 94 Room Air 0 08/21/22 03:42 Room Air 08/20/22 23:09 08/20/22 21:32 Room Air Laboratory Results Laboratory Results WBC 5.46 K/ul (4.8-10.8) 08/21/22 05:54 RBC 4.53 M/uL (4.70-6.10) L 08/21/22 05:54 Hgb 14.1 g/dl (14.0-18.0) 08/21/22 05:54 Hct 40.4 % (42.0-52.0) L 08/21/22 05:54 MCV 89.2 fL (80.0-100.0) 08/21/22 05:54 MCH 31.1 pg (25.0-34.0) 08/21/22 05:54 MCHC 34.9 g/dL (32.0-36.0) 08/21/22 05:54 RDW Std Deviation 39.9 fL (36.4-46.3) 08/21/22 05:54 RDW Coeff of Darcy 12.2 % (11.5-14.5) 08/21/22 05:54 Plt Count 44 K/uL (130-400) L 08/21/22 05:54 MPV 11.3 fL (9.4-12.4) 08/21/22 05:54 Immature Gran % (Auto) 0.2 % 08/21/22 05:54 Neut % (Auto) 78.1 % 08/21/22 05:54 Lymph % (Auto) 10.3 % 08/21/22 05:54 Snyder % (Auto) 10.8 % 08/21/22 05:54 Eos % (Auto) 0.2 % 08/21/22 05:54 Baso % (Auto) 0.4 % 08/21/22 05:54 Neut # (Auto) 4.27 K/uL (1.40-6.50) 08/21/22 05:54 Lymph # (Auto) 0.56 K/uL (1.2-3.4) L 08/21/22 05:54 Snyder # (Auto) 0.59 K/uL (0.11-0.59) 08/21/22 05:54 Eos # (Auto) 0.01 K/uL (0-0.50) 08/21/22 05:54 Baso # (Auto) 0.02 K/uL (0-0.2) 08/21/22 05:54 Immature Gran # (Auto) 0.01 K/uL (0.01-0.20) 08/21/22 05:54 Platelet Estimate Decreased (Normal) L 08/20/22 17:17 Peripher Smr Path Cons 08/20/22 17:46 PT 12.1 Seconds (9.0-12.0) H 08/20/22 17:17 INR 1.1 (0.9-1.1) 08/20/22 17:17 APTT 30.8 Seconds (21.0-31.0) 08/20/22 17:17 PTT Ratio 1.1 08/20/22 17:17 Sodium 133 mmol/L (136-145) L 08/21/22 05:54 Potassium 3.8 mmol/L (3.5-5.1) 08/21/22 05:54 Chloride 104 mmol/L (98-107) 08/21/22 05:54 Carbon Dioxide 20 mmol/L (21-32) L 08/21/22 05:54 Anion Gap 9 (3-11) 08/21/22 05:54 BUN 41 mg/dl (6-23) H 08/21/22 05:54 Creatinine 2.23 mg/dl (0.6-1.4) H D 08/21/22 05:54 Est Cr Clr Drug Dosing 34.7 ml/min 08/21/22 05:54 Est GFR ( Amer) 32.4 ml/min 08/21/22 05:54 Est GFR (Non-Af Amer) 28.0 ml/min 08/21/22 05:54 BUN/Creatinine Ratio 18.4 (10-20) 08/21/22 05:54 Glucose 117 mg/dl (70-99(Fasting)) H 08/21/22 05:54 Lactate 2.6 mmol/L (0.4-2.0) H* 08/20/22 19:48 Calcium 7.7 mg/dl (8.6-10.3) L 08/21/22 05:54 Magnesium 2.0 mg/dl (1.7-2.4) 08/21/22 05:54 Total Bilirubin 1.9 mg/dl (0.2-1.0) H 08/21/22 05:54 AST 45 U/L (13-39) H 08/21/22 05:54 ALT 35 U/L (7-52) 08/21/22 05:54 Alkaline Phosphatase 56 U/L (34-104) 08/21/22 05:54 Troponin I High Sens 67.1 pg/ml (0-20) H* D 08/21/22 05:54 Total Protein 5.4 gm/dl (6.0-8.3) L 08/21/22 05:54 Albumin 3.0 gm/dl (3.4-5.0) L 08/21/22 05:54 Globulin 2.4 gm/dl (2.5-4.0) L 08/21/22 05:54 Albumin/Globulin Ratio 1.3 (0.9-2) 08/21/22 05:54 Procalcitonin 5.69 ng/ml (0-0.5) H 08/20/22 19:27 Urine Color Dark Yellow 08/21/22 09:12 Urine Appearance Turbid (Clear) A 08/21/22 09:12 Urine pH 5.0 (4.5-7.5) 08/21/22 09:12 Ur Specific [place] 1.015 (1.000-1.030) 08/21/22 09:12 Urine Protein 1+ (Negative) H 08/21/22 09:12 Urine Glucose (UA) Negative (Negative) 08/21/22 09:12 Urine Ketones Negative (Negative) 08/21/22 09:12 Urine Blood Negative (Negative) 08/21/22 09:12 Urine Nitrite Negative (Negative) 08/21/22 09:12 Urine Bilirubin Negative (Negative) 08/21/22 09:12 Urine Urobilinogen Negative (Negative) 08/21/22 09:12 Ur Leukocyte Esterase Trace (Negative) H 08/21/22 09:12 Urine WBC (Auto) 10-30 /hpf (0-5) H 08/21/22 09:12 Urine RBC (Auto) 0-4 /hpf (0-4) 08/21/22 09:12 U Hyaline Cast (Auto) 1-5 /lpf (0-5) 08/21/22 09:12 U Epithel Cells (Auto) >30 /lpf (0-5) H 08/21/22 09:12 Urine Bacteria (Auto) Negative (Negative) 08/21/22 09:12 Ur Renal Epithelial Cell Not Reportable 08/21/22 09:12 Granular Casts 1-5 /lpf (0) H 08/21/22 09:12 Urine Yeast Not Reportable 08/21/22 09:12 Anaplasma Smear See Comment A 08/20/22 17:46 Babesia Smear See Comment 08/20/22 17:46 Lyme Disease IgG Ab Negative (Negative) 08/20/22 19:27 Lyme Disease IgM Ab Negative (Negative) 08/20/22 19:27 SARS-CoV-2 (PCR) NEGATIVE (Negative) 08/20/22 18:17 Influenza Type A (PCR) Negative (Neg) 08/20/22 18:17 Influenza Type B (PCR) Negative (Neg) 08/20/22 18:17 RSV (RT-PCR) Negative (Neg) 08/20/22 18:17 Impressions Chest X-Ray 08/20/22 17:07 XR chest 1V portable HISTORY: Chest pain, nonspecific COMPARISON: Chest 08/19/2022. FINDINGS: No pneumothorax. No pleural effusions. Left-sided pacemaker and poststernotomy changes. The cardiac silhouette is top normal in size. No new focal lung consolidations to suggest a pneumonia. No evidence for pulmonary edema. A cardiac valve prosthesis is again noted. IMPRESSION: No significant change compared to the prior study. No acute process. ACT 112: Negative or not required by law. Electronically signed by: Abhishek Duran M.D. 08/20/2022 6:[address] 08/20/22 17:46 Exam(s): CT HEAD Without Contrast EXAM: CT Head Without Intravenous Contrast CLINICAL HISTORY: Reason for exam: weakness. TECHNIQUE: Axial computed tomography images of the head/brain without intravenous contrast. CTDI is 15.83 mGy and DLP is 1565 mGy-cm. Automated exposure control was utilized for the study. A dose lowering technique was utilized adhering to the principles of ALARA. COMPARISON: None FINDINGS: Brain: No acute infarct or hemorrhage identified. No extra-axial fluid collection. No mass effect or midline shift. Scattered areas of hypoattenuation in the supratentorial white matter likely represent chronic small vessel ischemic changes. Ventricles and sulci: Prominence of the ventricles and sulci is likely secondary to cerebral volume loss. Bones: Normal. No bony lesion or acute fracture. Subcutaneous tissues: Normal. Sinuses: Mild mucosal thickening in the ethmoid air cells. Mastoid air cells: Normal. Orbits: Grossly unremarkable. Other: Atherosclerotic calcifications in the intracranial vasculature. IMPRESSION: 1. No acute intracranial abnormality. 2. Chronic small vessel ischemic changes and cerebral volume loss. Electronically signed by: Bethany Zaidi M.D. 08/20/22 19:46 PM Abdomen/Pelvis CT 08/20/22 18:02 Exam(s): CT ABDOMEN + PELVIS Without Contrast EXAM: CT Abdomen and Pelvis Without Intravenous Contrast CLINICAL HISTORY: Reason for exam: belen. TECHNIQUE: Axial computed tomography images of the abdomen and pelvis without intravenous contrast. CTDI is 15.83 mGy and DLP is 1565 mGy-cm. Automated exposure control was utilized for the study. A dose lowering technique was utilized adhering to the principles of ALARA. COMPARISON: None FINDINGS: Lung bases: Unremarkable. No mass. No consolidation. Heart: Mild cardiomegaly. ABDOMEN: Liver: Hepatic steatosis. Gallbladder and bile ducts: Prior cholecystectomy. No ductal dilation. Pancreas: Unremarkable. No ductal dilation. Spleen: Mild splenomegaly. Adrenals: Unremarkable. No mass. Kidneys and ureters: Small nonobstructing right renal stone. No hydronephrosis or ureteral stone. Nonspecific mild bilateral perinephric fat stranding. Small bilateral renal cysts. Stomach and bowel: Diverticulosis without evidence of diverticulitis. No small bowel obstruction. Evaluation of the stomach is limited by underdistention. PELVIS: Appendix: Normal appendix. Bladder: Mild prominence of the bladder wall may be secondary to underdistention. Please correlate with urinalysis if concerned for cystitis. No stones. Reproductive: Calcifications in a mildly enlarged prostate. ABDOMEN and PELVIS: Intraperitoneal space: Unremarkable. No free air. No significant fluid collection. Bones/joints: No acute fracture. No dislocation. Soft tissues: Fat-containing bilateral inguinal hernias. Vasculature: Phleboliths in pelvis. No abdominal aortic aneurysm. Lymph nodes: Unremarkable. No enlarged lymph nodes. Tubes, lines and devices: Pacer wires partially visualized. Median sternotomy changes. Prosthetic aortic valve. IMPRESSION: 1. Mild prominence of the bladder wall may be secondary to underdistention. Please correlate with urinalysis if concerned for cystitis. 2. Small nonobstructing right renal stone. No hydronephrosis or ureteral stone. Electronically signed by: Bethany Zaidi M.D. 08/20/22 19:44 PM Medications Administered Acetaminophen (Acetaminophen 325 Mg Tab) 650 mg PO Q4H PRN PRN Reason: Pain or Fever Stop: 09/19/22 22:05 Last Admin: 08/20/22 23:55 Dose: 650 mg Documented By: AMBER Aspirin (Aspirin 81 Mg Ectab) 81 mg PO QAM [facility] Stop: 09/20/22 08:59 Last Admin: 08/21/22 07:50 Dose: 81 mg Documented By: [facility] Cholestyramine Resin (Cholestyramine Light 4 Gm Pkt) 4 gm PO 2200 [facility] Stop: 09/19/22 21:59 Last Admin: 08/20/22 23:58 Dose: Not Given Documented By: AMBER Guaifenesin (Guaifenesin 600 Mg Tabcr) 1,200 mg PO Q12 [facility] Stop: 09/20/22 08:59 Last Admin: 08/21/22 07:49 Dose: 1,200 mg Documented By: ARLETTE Sodium Chloride (Nss 1000ml) 1,000 mls @ 125 mls/hr IV .Q8H JES Stop: 09/20/22 04:14 Last Admin: 08/21/22 12:15 Dose: 125 mls/hr Documented By: Infusion: 08/21/22 12:15 Dose: 0 mls/hr Documented By: Admin: 08/21/22 04:25 Dose: 125 mls/hr Documented By: AMBER Pantoprazole Sodium (Pantoprazole 40 Mg Tab) 40 mg PO QAM [facility] Stop: 09/20/22 08:59 Last Admin: 08/21/22 07:50 Dose: 40 mg Documented By: ARLETTE Sacubitril/Valsartan (Valsartan/Sacubitril 51/49 Mg Tab) 1 tab PO BID [facility] Stop: 09/19/22 20:59 Last Admin: 08/21/22 00:12 Dose: Not Given Documented By: AMBER Vitamin D (Cholecalciferol 1,000 Units 25 Mcg Tab) 1,000 units PO QAM [facility] Stop: 09/20/22 08:59 Last Admin: 08/21/22 07:50 Dose: 1,000 units Documented By: ARLETTE
[2022-08-21] MEDS ORDERED: COUGH DROP (SUGAR FREE) LOZ 24 LOZ/1 BOX BUCCAL STA (20:53)
[2022-08-21] MEDS: DOXYCYCLINE HYCLATE 100 MG CAP PO SCH (20:54)
[2022-08-21] MEDS: CHOLESTYRAMINE LIGHT 4 GM PKT PO SCH (20:54)
--- NOTE | 2022-08-21 21:28 | Electrocardiogram Report ---
Test Reason : Blood Pressure : / mmHG Vent. Rate : 095 BPM Atrial Rate : 000 BPM P-R Int : 000 ms QRS Dur : 132 ms QT Int : 376 ms P-R-T Axes : 000 -07 137 degrees QTc Int : 472 ms Atrial fibrillation Non-specific intra-ventricular conduction block Minimal voltage criteria for LVH, may be normal variant ( Otto product ) T wave abnormality, consider lateral ischemia Abnormal ECG When compared with ECG of 18-DEC-2015 04:00, Atrial fibrillation has replaced Sinus rhythm Vent. rate has increased BY 49 BPM Confirmed by Fabio Ashley ([id number]) on 08/21/2022 9:28:11 PM Referred By: REFERRED SELF Confirmed By:Fabio Ashley
[2022-08-22] MEDS ORDERED: guaiFENesin/CODEINE 100MG/10MG 5ML UDC PO STA (00:41)
[2022-08-22] MEDS ORDERED: BENZONATATE 100 MG CAPSULE PO ONE ×2 (04:03→10:32)
[2022-08-22 07:47] LABS: Hematocrit (blood only) 44.7 % (42.0-52.0); Hemoglobin 15.5 g/dl (14.0-18.0); Mean Corpuscular Hemoglobin 31.2 pg (25.0-34.0); Mean Corpuscular Hgb Conc 34.7 g/dL (32.0-36.0); Mean Corpuscular Volume 89.9 fL (80.0-100.0); Mean Platelet Volume 10.9 fL (9.4-12.4); Platelet Count 53 K/uL (130-400); RDW Coefficient of Variation 12.5 % (11.5-14.5); RDW Standard Deviation 41.5 fL (36.4-46.3); Red Blood Count 4.97 M/uL (4.70-6.10); White Blood Count 5.12 K/ul (4.8-10.8)
[2022-08-22 07:56] LABS: BUN Creatinine Ratio 20.6 (10-20); Calcium 8.6 mg/dl (8.6-10.3); Creatinine Clr Calc Pharmacy 45.6 ml/min; Est GFR (Non-African American) 38.9 ml/min; Potassium 3.9 mmol/L (3.5-5.1)
[2022-08-22] MEDS ORDERED: APIXABAN 5 MG TABLET PO SCH (09:00)
[2022-08-22] MEDS: PANTOprazole 40 MG TAB PO SCH (09:29)
[2022-08-22] MEDS: CHOLECALCIFEROL 1,000 UNITS 25 MCG TAB PO SCH (09:30)
[2022-08-22] MEDS: DOXYCYCLINE HYCLATE 100 MG CAP PO SCH (09:31)
[2022-08-22] MEDS: ASPIRIN 81 MG ECTAB PO SCH (09:32)
[2022-08-22] MEDS: guaiFENesin 600 MG TABCR PO SCH (09:32)
--- NOTE | 2022-08-22 10:23 | Discharge Summary ---
Date of Service August 22, 2022 Admission HPI Per Admitting Provider 72yo Male with PMH GERD, s/p pacermaker, pAfib, fatty liver, sleep apnea on BIPAP here for 2 weeks weakness muscle/joint pain found to have anaplasmosis. [place] gets [place], found a tick on him 4-6 weeks ago. 2 weeks ago he woke up with muscle and joint aches, in 3 days the pain worsened enough to interfere with walking. He saw his PCP underwent testing for lyme, was negative. He noted his symptoms improved for 5 days, then returned, also noted constipation heacache and cough. His PCP ordered a CXR was negative, started him on albuterol inhaler and Zpack started yesterday. Patient states he required a wheelchair to get to the Xray. Yesterday his pacer detected afib, he recieved a phone call regarding the afib and was advised to go to the ED. Patient denies nausea vomitting SOB or rash. At this time he feels somewhat better but still weak. He has urinated in his pants 3 times in past few weeks given weakness and difficulty reaching the bathroom at night. Admission Exam Per Admitting Provider Constitutional: + ill appearing and cooperative Eyes: PERRL, conjunctivae normal, anicteric sclerae ENMT: external ear and nose normal, oropharynx normal Neck: trachea midline, no thyromegaly Respiratory: normal respiratory effort, lungs clear to auscultation Cardiovascular: Rate/Rhythm: + irregularly irregular Gastrointestinal (Abdomen): Inspection/Auscultation: abdomen normal to inspection Percussion/Palpation: abdomen soft; abdomen nontender Skin: no rashes, warm and dry Principal Diagnosis anaplasmosis, new onset afib Discharge Exam Constitutional: well appearing, no acute distress HEENT: normocephalic, no conjunctival injection CV: irregularly irregular rhythm, regular rate, no murmur Respiratory: Clear to auscultation bilaterally. No rhonchi, wheezes, or crackles. No increased work of breathing MSK: no gross deformities noted Skin: warm, dry, no rashes Neuro: alert, oriented, no FND noted Discharge Data Allergies Allergy/AdvReac Type Severity Reaction Status Date / Time No Known Allergies Allergy Unknown Verified 08/20/22 18:46 Consultations 08/20/22 19:57 ED Decision to Admit Stat Ordered Studies 08/20/22 17:46 CT head/brain wo con Stat IMPRESSION: 1. No acute intracranial abnormality. 2. Chronic small vessel ischemic changes and cerebral volume loss. 08/20/22 18:02 CT abd pelvis wo con Stat IMPRESSION: 1. Mild prominence of the bladder wall may be secondary to underdistention. Please correlate with urinalysis if concerned for cystitis. 2. Small nonobstructing right renal stone. No hydronephrosis or ureteral stone. Hospital Course (1) Anaplasmosis: Pt is a 72 yo male with PMH of biscuspid AV s/p replacement (2011), HTN, sleep apnea, GERD, and s/p pacemaker presenting to the hospital at recommendation of his health technician hearing d/t new onset afib seen on his pacemaker. He has also been experiencing fevers, chills, cough, generalized weakness, and body aches for the past 2 weeks. Anaplasmosis - pt reports multiple recent tick bites - lyme testing neg, additional tick panel pending - positive anaplasma smear - CT head and CXR neg - pt with symptomatic improvement; only lingering sx is cough- prescribed benzonatate PRN - continue doxycycline 100 mg BID x10 days total (9 more days upon discharge) New onset afib - hx of AVR 2011 and pacemaker - pt asymptomatic; first noticed on pacemaker - CHADVASC=2 - begin anticoagulation with eliquis 5 mg BID - HR up to ~110 while hospitalized; increase metoprolol to 50 mg daily - close f/u with cardiology. Dr. Almendarez made aware. BELEN - previous Cr on record 1.12 from 2019 - Cr 2.55 upon admission - CTAP with evidence of mild bladder prominence and small nonobstructing R stone, otherwise normal - suspect component of pre renal from dehydration but also likely intrinsic from anaplasmosis - s/p fluid resuscitation - Cr day of discharge 1.7; ordered repeat BMP for Wednesday, 08/24 to ensure continued resolution Elevated troponin - peaked at 88.3 and has since downtrended; EKG non concerning for MA - likely demand ischemia in the setting of new onset afib Hypomagnesemia - repleted; repeat value WNL ANGELO - continue bipap HS Diet: Regular Code Status: Full DVT PPX: eliquis 5 mg BID Dispo: home (2) BELEN (acute kidney injury): (3) Elevated troponin: Total Time Total Time Spent Total Time Spent (In Minutes): as per attending attestation Discharge Plan Discharge Items Patient Disposition: Home - Self-Care Reason For Visit: ANAPLASMOSIS Discharge Diagnosis: anaplasmosis, new onset afib Activity: Per Instructions section Non-emergency contact: Primary Care Provider and Silk Blocker Call non-emergency contact if: you have any medication questions, your symptoms worsen and you have a fever Follow-up/Referrals: Ba Almendarez DO [Physician] - (f/u new onset afib) Kesha Lopez [Primary Care Provider] - (PLEASE CALL YOUR PRIMARY CARE AL OVIDER TO SCHEDULE A DISCHARGE FOLLOW-UP APPOINTMENT WITHIN 7-10 DAYS) Diet: Regular Ambulatory Orders: Basic Metabolic Panel (Routine) Timeframe: [id number] Location: Determined by Patient Ordered By: Cielo Lucero Attending Provider Instructions: You were admitted to the hospital for management of anaplasmosis. You were treated with IV fluids and antibiotics for this. You were also found to be in an abnormal heart rhythm called atrial fibrillation. This type of heart rhythm may predispose you to a blood clot developing in your heart. Your kidneys also showed some signs of damage likely from dehydration and your current anaplasmosis infection. A discharge summary will be sent to your primary care physician to ensure continuity of care. Please bring this discharge summary with you to your next office appointment so that your provider can review it at that time. Medications: Your medication list has been reviewed and reconciled upon discharge to ensure accuracy and continuity of care. An updated list of all your medications is included with your hospital discharge paperwork. Please review this list closely and make note of any changes to your medications. - You have been prescribed the antibiotic doxycycline. You received 3 doses while hospitalized. This should be continued for an additional 9 days upon discharge. - You were also prescribed benzonatate (Tessalon perles). These are to be used as needed for coughing up to 3 times per day. - Due to the abnormal heart rhythm, you will be started on a blood thinner called eliquis. This will be twice per day. - Per discussion with your health technician hearing, it was also recommended that you increase your metoprolol to 50 mg daily. Follow up appointments: - Make a follow up appointment with your PCP within the next week. It is very important that you follow up with them shortly after discharge from the hospital. - You should also make a follow up appointment with your health technician hearing to discuss your new onset abnormal heart rhythm (atrial fibrillation). - Keep all of your follow up appointments as already scheduled. If you cannot make an appointment, notify your provider. You should get blood work done Thursday 08/24 to ensure that your kidney function continues to improve. CONTACT YOUR PRIMARY CARE PROVIDER if you experience any of the following: - Difficulty following your treatment plan - Difficulty taking any of your medications CALL 911 OR GO TO THE EMERGENCY DEPARTMENT if you experience any of the following: - Sudden, severe abdominal pain or nausea/vomiting - Severe chest pain or chest pain that radiates to your jaw or arm - Sudden, severe shortness of breath or difficulty breathing Pending Studies at Discharge: No Stand-Alone Forms: My [facility] [employer], Smoking Cessation Medications and DC Order Prescriptions: New doxycycline hyclate 100 mg Capsule 100 mg PO BID 9 Days Qty: 18 0RF Eliquis 5 mg Tablet 5 mg PO BID 30 Days Qty: 60 0RF benzonatate 100 mg capsule 100 mg PO TID PRN (Reason: cough) Qty: 14 0RF metoprolol succinate 50 mg tablet extended release 24 hr 50 mg PO DAILY Qty: 30 0RF Continued aspirin [Morris Low Dose Aspirin] 81 mg Tablet,Delayed Release (Dr/Ec) 81 mg PO QAM cholestyramine (with sugar) 4 gram Powder 4 g PO HS cholecalciferol (vitamin D3) [Vitamin D3] 1,000 unit Tablet 1,000 unit PO QAM omeprazole 20 mg Tablet,Delayed Release (Dr/Ec) 20 mg PO QAM albuterol sulfate 90 mcg/actuation HFA aerosol inhaler 2 puff INHALATION Q4H PRN (Reason: Shortness Of Breath) Entresto 49-51 mg tablet 1 tab PO BID Discontinued metoprolol succinate [Toprol XL] 25 mg Tablet Extended Release 24 Hr 25 mg PO QAM azithromycin 250 mg tablet 250 mg PO DAILY Rx Instructions: STARTED 08/19/22 FOR 5 DAYS. Discharge Orders: Discharge Order (Routine); Ordered 08/22/22 Ordered By: Cielo Sánchez Admission Data Admit Date/Time: 08/20/22 20:42 Attending Provider: Marguerite Almaguer Admit Provider: Tamiko Jay Primary Care Provider: Kesha Lopez Other Providers: Sheba Chapin Other Interventions: Discharge Summary Assessment (RN) Last Done: 08/22/22 11:01 Supervising Physician Co-Signing Physician Notes Resident Physician Supervision Note: I independently interviewed and examined the patient and verified the banda history and physical, reviewed labs and image studies and agree with resident findings and care plan. Resident Activity Tracking Resident Involvement: Resident Care Provided Care Provided: Adult Hospital Medicine
[2022-08-22 13:53] LABS: Anaplasmosis Smear(Rpt to DOH) Pos for Anaplasma
[2022-08-26 01:27] LABS: Babesia microti DNA Not Detected (Not Detected)
[2022-08-27 07:08] LABS: Ehrlichia chaff DNA Bld Negative (Negative)
== END 2022-08-22 11:24 | disposition home or self-care (01) | DRG 868 ==
LOC: ED 17:00 → SUATTDRO 20:42 → 2W 20:42

== ENCOUNTER 2024-09-20 20:59 | Observation (INO) ==
[2024-09-20] MEDS: ACETAMINOPHEN 1,000 MG/100 ML VIAL IV STA (22:03)
[2024-09-20] MEDS: SODIUM CHLORIDE 0.9% 500 ML IV STA (22:03)
[2024-09-20] MEDS: ONDANSETRON INJ 2 MG/ML 2 ML VIAL IV STA (22:03)
[2024-09-20 22:29] LABS: Hematocrit (blood only) 48.2 % (42.0-52.0); Hemoglobin 16.8 g/dl (14.0-18.0); Mean Corpuscular Hemoglobin 31.7 pg (25.0-34.0); Mean Corpuscular Hgb Conc 34.9 g/dL (32.0-36.0); Mean Corpuscular Volume 90.9 fL (80.0-100.0); Mean Platelet Volume 10.8 fL (9.4-12.4); Platelet Count 138 K/uL (130-400); RDW Coefficient of Variation 12.7 % (11.5-14.5); RDW Standard Deviation 42.5 fL (36.4-46.3); White Blood Count 9.28 K/ul (4.8-10.8)
[2024-09-20 22:30] LABS: iSTAT Creatinine 1.5 mg/dl (0.6-1.3); iSTAT Hemoglobin 15.3 g/dl (14.0-18.0); iSTAT Ionized Calcium 1.18 mmol/l (1.12-1.32)
[2024-09-20 22:30] LABS: Basophils # (auto) 0.05 K/uL (0.00-0.20); Basophils % (auto) 0.5 %; Eosinophils # (auto) 0.14 K/uL (0.00-0.50); Eosinophils % (auto) 1.5 %; Immature Granulocytes # (auto) 0.02 K/uL (0.01-0.20); Immature Granulocytes % (auto) 0.2 %; Lymphocytes # (auto) 1.19 K/uL (1.20-3.40); Lymphocytes % (auto) 12.8 %; Monocytes # (auto) 0.76 K/uL (0.11-0.59); Monocytes % (auto) 8.2 %; Neutrophils # (auto) 7.12 K/uL (1.40-6.50); Neutrophils % (auto) 76.8 %; RBC Morphology Unremarkable
[2024-09-20 22:53] LABS: Alanine Aminotransferase 31 U/L (7-52); Albumin Globulin Ratio 1.3 (0.9-2); Albumin Level 4.3 gm/dl (3.4-5.0); Alkaline Phosphatase 55 U/L (34-104); Anion Gap 9 (3-11); BUN Creatinine Ratio 10.3 (10-20); Bilirubin,Total 1.7 mg/dl (0.2-1.0); Blood Urea Nitrogen 15 mg/dl (6-23); Calcium 9.8 mg/dl (8.6-10.3); Carbon Dioxide 25 mmol/L (21-32); Chloride 105 mmol/L (98-107); Creatinine Clr Calc Pharmacy 51.3 ml/min; Globulin 3.2 gm/dl (2.5-4.0); Glucose 117 mg/dl (70-99(Fasting)); Lipase 33 U/L (11-82); Sodium 139 mmol/L (136-145); Total Protein 7.5 gm/dl (6.0-8.3); Troponin I High Sensitivity 14.6 pg/ml (0-20)
[2024-09-20] MEDS: OPTIRAY 320 100ml IV ONE (22:59)
[2024-09-20 23:12] LABS: Amorphous Sediment Urine Present (None Prsent); Appearance Urine Turbid (Clear); Bacteria Urine Automated None Seen (None Seen); Bilirubin Urine Negative (Negative); Blood Urine 3+ (Negative); Cast Urine Automated 0-2 /lpf (0-2); Color Urine Orange; Glucose Urine UA Negative (Negative); Ketones Urine 2+ (Negative); Leukocyte Esterase Urine 1+ (Negative); Nitrite Urine Negative (Negative); Protein Urine 3+ (Negative); RBC Urine Automated >20 /hpf (0-2); Specific Gravity Urine 1.021 (1.000-1.030); Urobilinogen Urine Negative (Negative)
[2024-09-20] MEDS: cefTRIAXone SODIUM 2,000 MG/50 ML BAG IV STA (23:29)
--- NOTE | 2024-09-21 00:01 | Emergency Department Note ---
History of Present Illness General Chief complaint: Abdominal Pain Stated complaint: ABDOMINAL PAIN Time Seen by Provider: 09/20/24 21:43 History of Present Illness Maximum Pain Intensity: 2 This 74-year-old gentleman presents ER complaining of right flank and abdominal pain for the past day and a half. No history of kidney stones. Patient denies penile pain, urinary symptoms, chest pain, dyspnea, vomiting, diarrhea. He tried Pepto-Bismol with minimal relief of symptoms. Home Medications Medication Instructions Recorded Confirmed Type aspirin 81 mg tablet,delayed 81 mg PO QAM 09/16/18 09/21/24 History release (Morris Low Dose Aspirin) cholecalciferol (vitamin D3) 25 1,000 unit PO QAM 09/16/18 09/21/24 History mcg (1,000 unit) tablet (Vitamin D3) cholestyramine (with sugar) 4 gram 4 g PO QAM 09/16/18 09/21/24 History oral powder sacubitril 49 mg-valsartan 51 mg 1 tab PO BID 08/20/22 09/21/24 History tablet (Entresto) metoprolol succinate 50 mg 25 mg PO QPM 09/10/22 09/21/24 History tablet,extended release 24 hr omeprazole 40 mg capsule,delayed 40 mg PO QAM 09/10/22 09/21/24 History release apixaban 5 mg tablet (Eliquis) 5 mg PO BID 12/10/22 09/21/24 History Allergies Allergy/AdvReac Type Severity Reaction Status Date / Time No Known Allergies Allergy Unknown Verified 09/21/24 00:15 Past Med/Surg History Problem List (Updated 09/21/24 @ 01:33 by Background Eric) Acute UTI (Acute) Ureterolithiasis (Acute) Renal colic on right side (Acute) Shoulder joint crepitus History of rotator cuff surgery Operation Date: 02/11/24 07:00 Actual Procedures p Right Shoulder Arthroscopy, extensive debridement, partial subscapularis and in situ supraspinatus rotator Cuff Repair with allograft augmentation, Subacromial Decompression, Biceps Tenodesis(Right) - Orestes Watts MD S/P right rotator cuff repair Tendinopathy of right biceps tendon Rotator cuff tear Right shoulder pain History of colon polyps Bile salt-induced diarrhea Fatty liver Myofascial pain Leg length discrepancy Sacroiliac joint disease Cicatrix of skin Hearing disorder of right ear Encounter for pre-operative examination History of back surgery L4-S1 fusion GERD (gastroesophageal reflux disease) Medical History (Updated 09/21/24 @ 01:33 by Cachorro Reyes) Prediabetes Rotator cuff tear, right Tendinopathy of right biceps tendon GERD (gastroesophageal reflux disease) well controlled and stable 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 Left bundle branch block (LBBB) with associated long 1st degree AVB- s/p dual chamber PPM ([employer]- 2020) LVH (left ventricular hypertrophy) Severe concentric Hearing deficit No hearing at all on right side- s/p cochlear implant to right side- does not function Hypertension Sleep apnea bipap Surgical History (Updated 02/11/24 @ 10:42 by Orestes Watts MD) Hx of colonoscopy with polypectomy Hx of bilateral cataract extraction (2023) Hx of spinal fusion (2003) L4-L5 fusion History of tooth extraction S/P LASIK surgery of both eyes History of carpal tunnel surgery of right wrist 20 years ago History of cochlear implant x2--RT EAR H/O endoscopic retrograde cholangiopancreatography Hx of shoulder surgery left History of open reduction and internal fixation (ORIF) procedure left ankle History of cholecystectomy (12/18/15) 12/18/15 - MAC #4, ETT #7.5, Grade 2 View Family History Other No family history of adverse response to anesthesia Social History Smoking Status: Former smoker Tobacco Type: Cigarettes Cigarettes Per Day: around 1993; Second Hand Exposure: No; Do You Dip or Chew Tobacco: No; Hx Alcohol Use: Yes Alcohol type: beer and hard liquor Hx Substance Use: No Preferred Language: Greek Communication Ability: Effective Manager Systems Required: No Beliefs That Will Affect Care: None Current Living Situation: Spouse Feels Safe at Home: Yes Assistive Devices: BiPap, Denture - Upper and Hearing Aid - Bilateral Review of Systems A total of 10 systems reviewed and were otherwise negative Physical Exam Vital Signs Vital Signs - 24 hr 09/20/24 21:01 09/20/24 21:32 09/20/24 21:34 Temperature 36.5 C Temperature Source Temporal Artery Scan Pulse Rate 74 63 Pulse Rate [Apical] 61 Pulse Rhythm Pulse Rhythm [Apical] Regular Pulse Strength [Apical] Normal Respiratory Rate 16 16 Respiratory Effort / Characteristics Non-Labored Non-Labored Spontaneous Respiratory Depth Normal Normal Respiratory Pattern Regular Blood Pressure 167/90 H Blood Pressure [Right Arm] 161/91 H Blood Pressure Mean 115 Blood Pressure Mean [Right Arm] 114 Blood Pressure Position [Right Arm] Lying Pulse Oximetry 96 94 Oxygen Delivery Method Room Air Room Air Sepsis Recent Fever Within 48 Hours No Sepsis New/Unexplained Change in Mental Status No Sepsis Action Taken by Nursing No Action Required 09/20/24 21:48 09/20/24 23:33 Temperature Temperature Source Pulse Rate 64 Pulse Rate [Apical] 66 Pulse Rhythm Regular Pulse Rhythm [Apical] Pulse Strength [Apical] Respiratory Rate 18 18 Respiratory Effort / Characteristics Respiratory Depth Respiratory Pattern Blood Pressure Blood Pressure [Right Arm] 129/75 Blood Pressure Mean Blood Pressure Mean [Right Arm] 93 Blood Pressure Position [Right Arm] Pulse Oximetry 91 95 Oxygen Delivery Method Room Air Room Air Sepsis Recent Fever Within 48 Hours Sepsis New/Unexplained Change in Mental Status Sepsis Action Taken by Nursing VITALS: Vitals are noted on the nurse's note and reviewed by myself. Vital signs stable. GENERAL: Pleasant gentleman, in no acute distress, nondiaphoretic, well- developed well-nourished. No rash. No shingles. SKIN: Capillary reflex less than 2 seconds. HEENT: Normocephalic. PERRLA. EOMI. Nares patent. Mucous membranes moist. Neck is supple without nuchal rigidity. HEART: Regular rate and rhythm LUNGS: Clear to auscultation bilaterally without wheezes, rales or rhonchi. No retractions or accessory muscle use. ABDOMEN: Positive bowel sounds x 4. Normal tympanic percussion. Soft, nontender, without masses or organomegaly. Haskins sign negative. No guarding or rebound tenderness. no CVA tenderness MUSCULOSKELETAL: No gross musculoskeletal defects. NEURO: Patient was alert and oriented to person place and time. No focal neurological deficits. Course Administered Medications Lactated Ringer's (Lr) 1,000 mls @ 125 mls/hr IV .Q8H JES Stop: 09/21/24 17:38 Last Admin: 09/21/24 02:08 Dose: 125 mls/hr Documented By: CELINE Discontinued Medications Sodium Chloride (Nss) 500 mls @ 999 mls/hr IV .Q31M STA Stop: 09/20/24 22:18 Last Infusion: 09/20/24 23:30 Dose: Infused Documented By: Admin: 09/20/24 22:03 Dose: 999 mls/hr Documented By: LOS Acetaminophen (Ofirmev) 1,000 mg in 100 mls @ 400 mls/hr IV NOW STA Stop: 09/20/24 22:02 Last Infusion: 09/20/24 23:30 Dose: Infused Documented By: Admin: 09/20/24 22:03 Dose: 400 mls/hr Documented By: LOS Ceftriaxone Sodium (Rocephin) 2,000 mg in 50 mls @ 100 mls/hr IV NOW STA Stop: 09/20/24 23:53 Last Infusion: 09/21/24 00:30 Dose: Infused Documented By: Admin: 09/20/24 23:29 Dose: 100 mls/hr Documented By: SONU Ioversol (Optiray 320 100ml) 100 ml IV ONCE ONE Stop: 09/20/24 23:00 Last Admin: 09/20/24 22:59 Dose: 93 ml Documented By: JOEY Morphine Sulfate (Morphine Sulfate 4 Mg/Ml 1 Ml Carp\Vial) 4 mg IV Q15M PRN PRN Reason: Pain Stop: 10/04/24 21:47 Last Admin: 09/21/24 00:30 Dose: 4 mg Documented By: SONU Ondansetron HCl (Ondansetron Inj 2 Mg/Ml 2 Ml Vial) 4 mg IV NOW STA Stop: 09/20/24 21:49 Last Admin: 09/20/24 22:03 Dose: 4 mg Documented By: LOS Medical Decision Making Medical Records Attestation: I reviewed the patient's medical records. Home Medications Current Medication List: was personally reviewed by ca Laboratory Data Attestation: I reviewed the patient's lab results. 09/20/24 21:28 06/04/25 21:28 Lab Results 09/20/24 09/20/24 09/20/24 Range/Units 21:28 22:18 Unknown WBC 9.28 (4.8-10.8) K/ul RBC 5.30 (4.70-6.10) M/uL Hgb 16.8 (14.0-18.0) g/dl POC Hgb 15.3 (14.0-18.0) g/dl Hct 48.2 (42.0-52.0) % POC Hct 45 (42-52) % MCV 90.9 (80.0-100.0) fL MCH 31.7 (25.0-34.0) pg MCHC 34.9 (32.0-36.0) g/dL RDW Std Deviation 42.5 (36.4-46.3) fL RDW Coeff of Darcy 12.7 (11.5-14.5) % Plt Count 138 (130-400) K/uL MPV 10.8 (9.4-12.4) fL Immature Gran % (Auto) 0.2 % Neut % (Auto) 76.8 % Lymph % (Auto) 12.8 % [place] % (Auto) 8.2 % Eos % (Auto) 1.5 % Baso % (Auto) 0.5 % Neut # (Auto) 7.12 H (1.40-6.50) K/uL Lymph # (Auto) 1.19 L (1.20-3.40) K/uL [place] # (Auto) 0.76 H (0.11-0.59) K/uL Eos # (Auto) 0.14 (0.00-0.50) K/uL Baso # (Auto) 0.05 (0.00-0.20) K/uL Immature Gran # (Auto) 0.02 (0.01-0.20) K/uL RBC Morphology Unremarkable POC Sodium 142 (135-144) mmol/L Sodium 139 (136-145) mmol/L POC Potassium 4.0 (3.3-5.0) mmol/L Potassium TNP POC Chloride 105 (101-112) mmol/L Chloride 105 (98-107) mmol/L Carbon Dioxide 25 (21-32) mmol/L POC Total CO2 22 L (24-31) mmol/L Anion Gap 9 (3-11) POC Anion Gap 20.0 (16-25) mmol/L POC BUN 13 (7-18) mg/dl BUN 15 (6-23) mg/dl Creatinine 1.46 H (0.6-1.4) mg/dl POC Creatinine 1.5 H (0.6-1.3) mg/dl Est Cr Clr Drug Dosing 51.3 ml/min eGFR 49.53 BUN/Creatinine Ratio 10.3 (10-20) Glucose 117 H (70-99(Fasting)) mg/dl POC Glucose (other) 113 H (70-99) mg/dl Calcium 9.8 (8.6-10.3) mg/dl POC Ioniz Calcium Madyson 1.18 (1.12-1.32) mmol/l Total Bilirubin 1.7 H (0.2-1.0) mg/dl AST TNP ALT 31 (7-52) U/L Alkaline Phosphatase 55 (34-104) U/L Troponin I High Sens 14.6 (0-20) pg/ml Total Protein 7.5 (6.0-8.3) gm/dl Albumin 4.3 (3.4-5.0) gm/dl Globulin 3.2 (2.5-4.0) gm/dl Albumin/Globulin Ratio 1.3 (0.9-2) Lipase 33 (11-82) U/L Urine Color Divide Urine Appearance Turbid A (Clear) Urine pH 5.0 (4.5-7.5) Ur Specific [place] 1.021 (1.000-1.030) Urine Protein 3+ H (Negative) Urine Glucose (UA) Negative (Negative) Urine Ketones 2+ H (Negative) Urine Blood 3+ H (Negative) Urine Nitrite Negative (Negative) Urine Bilirubin Negative (Negative) Urine Urobilinogen Negative (Negative) Ur Leukocyte Esterase 1+ H (Negative) Urine WBC (Auto) 11-20 H (0-5) /hpf Urine RBC (Auto) >20 H (0-2) /hpf U Hyaline Cast (Auto) 0-2 (0-2) /lpf U Epithel Cells (Auto) 6-10 H (0-2) /hpf Urine Bacteria (Auto) None Seen (None Seen) Amorphous Sediment Present A (None Prsent) Urine Comment Imaging Data Attestation: I personally reviewed and interpreted this imaging study as follows: Radiologist's Impression: Abdomen/Pelvis CT 09/20/24 21:49 Exam(s): CT ABDOMEN + PELVIS With Contrast IV Amt: 93 ML OPTIRAY 320 EXAM: CT Abdomen and Pelvis With Intravenous Contrast CLINICAL HISTORY: Severe flank and abdominal pain. TECHNIQUE: Axial computed tomography images of the abdomen and pelvis with intravenous contrast. CTDI is 28.14 mGy and DLP is 1451.1 mGy-cm. Automated exposure control was utilized for the study. A dose lowering technique was utilized adhering to the principles of ALARA. CONTRAST: Patient received 93 ML OPTIRAY 320 of IV contrast COMPARISON: 01/04/2024 CT pelvis FINDINGS: Lung bases: Unremarkable. No mass. No consolidation. ABDOMEN: Liver: Fatty infiltration of the liver. No focal liver lesion is seen. Gallbladder and bile ducts: Previous cholecystectomy. No ductal dilation. Pancreas: Unremarkable. No mass. No ductal dilation. Spleen: Unremarkable. No splenomegaly. Adrenals: Unremarkable. No mass. Kidneys and ureters: Mild right hydronephrosis and proximal hydroureter down to a 6 mm calculus in the mid right ureter located approximately 7 cm from the ureterovesicular junction. Nonobstructive 3 mm calculus in the mid right kidney. Simple cysts in both kidneys measuring up to 2.5 cm on the left. No follow-up is required. Stomach and bowel: Diverticulosis throughout the entire colon without evidence of acute diverticulitis. The appendix is normal. No acute inflammatory changes are seen involving the bowel. No obstruction. PELVIS: Appendix: See above. Bladder: Unremarkable. No mass. Reproductive: Unremarkable as visualized. ABDOMEN and PELVIS: Intraperitoneal space: Unremarkable. No free air. No significant fluid collection. Bones/joints: Previous instrumentation and fusion of L4 through S1 with moderate to severe degenerative changes in the mid lumbar spine. No acute fracture is seen. No dislocation. Soft tissues: Unremarkable. Vasculature: The abdominal aorta is mildly calcified but nondilated. Lymph nodes: Unremarkable. No enlarged lymph nodes. IMPRESSION: 1. Mild right hydronephrosis and proximal hydroureter down to a 6 mm calculus in the mid right ureter located approximately 7 cm from the ureterovesicular junction. 2. Diverticulosis throughout the entire colon without evidence of acute diverticulitis. The appendix is normal. No acute inflammatory changes are seen involving the bowel. Electronically signed by: Gen Chapin MD 09/21/24 02:04 AM MDM Narrative Prior records/ancillary studies reviewed. Triage Nursing notes reviewed. Additional history obtained from family. The patient's history was concerning for flank and abdominal pain. Differential diagnosis: Etiologies such as appendicitis, diverticulitis, PUD, biliary pathology, UTI, pancreatitis, obstruction, mesenteric ischemia, aortic pathology, infections, inflammatory bowel disease, renal colic, as well as others were entertained. Physical examination findings: As above. ER treatment provided: An order was placed for continuous cardiac monitoring. The monitor shows a rate of 60-100 with a sinus rhythm per my Independent interpretation. Tylenol, morphine and Zofran were ordered Rocephin was ordered for UTI On reassessment the patient felt better. Diagnostics interpreted by me: ECG: Ordered for pain EKG: Paced rhythm rate of 63. Impression paced rhythm independently interpreted by myself The labs Independently Interpreted by myself revealed urine concerning for infection and sent for culture. No prior culture for review No worrisome leukocytosis, creatinine 1.46 Imaging studies: Imaging was reviewed and read by radiology Consultation: A consultation was placed with the hospitalist. The case was discussed and diagnostics were reviewed. The patient was evaluated in the ER for further treatment. Exam and history seem consistent with right renal colic urolithiasis with concerns for UTI. Patient was given antibiotics. He was medicated as above. Medicine was consulted and the case was discussed. Patient will be admitted to the medical service. By the evaluation outlined above emergent etiologies such as appendicitis, diverticulitis, PUD, biliary pathology, pancreatitis, obstruction, mesenteric ischemia, aortic pathology, inflammatory bowel disease, as well as others were deemed relatively unlikely. The pt informed about the findings as listed above. All questions were answered and pleased with the treatment. The chart was completed utilizing [employer] voice recognition software. Grammatical errors, random word insertions, pronoun errors, and incomplete sentences are an occassional consequence of this system due to software limitations, ambient noise, and hardware issues. Any formal questions or concerns about the content, text, or information contained within the body of this dictation should be directly addressed to the physician occupational therapy assistant for clarification. Impression & Plan Renal colic on right side, Ureterolithiasis, Acute UTI Discharge Plan Visit Data Chief Complaint: Abdominal Pain Stated Complaint: ABDOMINAL PAIN ED Provider: Jana Bazan ED Midlevel Provider: Leigh Wooten Discharge Problem: Renal colic on right side, Ureterolithiasis, Acute UTI Patient Disposition: Admitted As Inpatient Condition: Good Discharge Instructions Interventions: ED Discharge Assessment Last Done: 09/21/24 01:14
--- NOTE | 2024-09-21 00:02 | History & Physical Report ---
Date of Service September 21, 2024 Assessment & Plan (1) Ureterolithiasis: (2) GERD (gastroesophageal reflux disease): (3) Atrial fibrillation: (4) Hypertension: (5) Sleep apnea: Plan 74-year-old male presenting with 2 days of right flank pain. Found to have mild right hydronephrosis and proximal hydroureter down to a 6 mm calculus in the mid right ureter located approximately 7 cm from the ureterovesicular junction. Patient with mild elevation of creatinine as well = 1.46. Increased from most recently 1.1 in December 2023 #Ureterolithiasis Admit to medical Keep n.p.o. Hydration with LR at 125 mL/h x 2 L Pain control with Tylenol, Toradol as needed Flomax 0.4 mg p.o. every morning Urology consultation appreciated Follow urine culture #Elevated creatinine Continue IV fluidsLR at 125 mL/h x 2 L Hold nephrotoxic agents Renal dosing were needed Repeat chemistry in the morning #GERD Protonix 40 mg p.o. every morning #Atrial fibrillation Continue metoprolol 25 mg p.o. every afternoon Hold Eliquis 5 mg p.o. twice daily #Sleep apnea BiPAP nightly History of Present Illness Chief Complaint: right flank pain Primary Care Provider: Kesha Lopez MD Juan Carlos Sargent is a pleasant 74yo male With history of atrial fibrillation, hypertension, GERD and ANGELO presenting with right flank pain. Patient woke from sleep 2 nights ago at 0400 with lower abdominal cramping. He had a bowel movement then developed dull but severe right flank pain. He took some Pepto- Bismol and the pain ultimately improved after some time. Patient had a recurrence of the pain today around 1600. Again the pain began as a lower abdominal cramp then progressed to severe right flank pain. Patient denies fever, chills, dysuria, frequency or urgency No chest pain, cough or shortness of breath No additional complaints at this time ER course: Normal saline 500 mL Zofran 4 mg Tylenol 1 g Ceftriaxone 2 mg Allergies Allergy/AdvReac Type Severity Reaction Status Date / Time No Known Allergies Allergy Unknown Verified 09/21/24 00:15 Home Medications Medication Instructions Recorded Confirmed Type aspirin 81 mg tablet,delayed 81 mg PO QAM 09/16/18 09/21/24 History release (Morris Low Dose Aspirin) cholecalciferol (vitamin D3) 25 1,000 unit PO QAM 09/16/18 09/21/24 History mcg (1,000 unit) tablet (Vitamin D3) cholestyramine (with sugar) 4 gram 4 g PO QAM 09/16/18 09/21/24 History oral powder sacubitril 49 mg-valsartan 51 mg 1 tab PO BID 08/20/22 09/21/24 History tablet (Entresto) metoprolol succinate 50 mg 25 mg PO QPM 09/10/22 09/21/24 History tablet,extended release 24 hr omeprazole 40 mg capsule,delayed 40 mg PO QAM 09/10/22 09/21/24 History release apixaban 5 mg tablet (Eliquis) 5 mg PO BID 12/10/22 09/21/24 History Past Med/Surg History Problem List Acute UTI (Acute) Ureterolithiasis (Acute) Renal colic on right side (Acute) Shoulder joint crepitus History of rotator cuff surgery Operation Date: 02/11/24 07:00 Actual Procedures p Right Shoulder Arthroscopy, extensive debridement, partial subscapularis and in situ supraspinatus rotator Cuff Repair with allograft augmentation, Subacromial Decompression, Biceps Tenodesis(Right) - Orestes Watts MD S/P right rotator cuff repair Tendinopathy of right biceps tendon Rotator cuff tear Right shoulder pain History of colon polyps Bile salt-induced diarrhea Fatty liver Myofascial pain Leg length discrepancy Sacroiliac joint disease Cicatrix of skin Hearing disorder of right ear Encounter for pre-operative examination History of back surgery L4-S1 fusion GERD (gastroesophageal reflux disease) Medical History Prediabetes Rotator cuff tear, right Tendinopathy of right biceps tendon GERD (gastroesophageal reflux disease) well controlled and stable 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 Left bundle branch block (LBBB) with associated long 1st degree AVB- s/p dual chamber PPM ([employer]- 2020) LVH (left ventricular hypertrophy) Severe concentric Hearing deficit No hearing at all on right side- s/p cochlear implant to right side- does not function Hypertension Sleep apnea bipap Surgical History Hx of colonoscopy with polypectomy Hx of bilateral cataract extraction (2023) Hx of spinal fusion (2003) L4-L5 fusion History of tooth extraction S/P LASIK surgery of both eyes History of carpal tunnel surgery of right wrist 20 years ago History of cochlear implant x2--RT EAR H/O endoscopic retrograde cholangiopancreatography Hx of shoulder surgery left History of open reduction and internal fixation (ORIF) procedure left ankle History of cholecystectomy (12/18/15) 12/18/15 - MAC #4, ETT #7.5, Grade 2 View Family History Other No family history of adverse response to anesthesia Social History Smoking Status: Never smoker Tobacco Type: Cigarettes Cigarettes Per Day: around 1993; Second Hand Exposure: No; Do You Dip or Chew Tobacco: No; Hx Alcohol Use: No Hx Substance Use: No Preferred Language: Cameroonian Communication Ability: Effective Inpatient Care Manager Rn Required: Yes Beliefs That Will Affect Care: None Current Living Situation: Spouse Other Information That Helps Us Care for You: No Feels Safe at Home: Yes Safety Concerns: Feels Safe At This Time Assistive Devices: None Review of Systems Review of Systems: All systems reviewed & are unremarkable except as noted in HPI & below Physical Exam Physical Exam: General: patient resting comfortably, NAD, non-toxic in appearance, AA&O x 4 Skin: warm, dry, intact, no rashes or lesions HEENT: NC/AT, PERRL, EOMI, anicteric sclera, conjunctiva without injection, external ear normal to inspection and nontender, nares patent, moist mucus membranes, dentition intact, no oropharyngeal lesions, neck supple, trachea midline, no LAD, no thyromegaly, no JVD Heart: +S1/S2, regular, no m/r/g Lungs: equal air entry bilaterally, no rales/rhonchi/wheezes Abd: +BS, soft, NT/ND, no masses/organomegaly/ascites Ext: warm, 2+ pulses in UE/LE bilaterally, no clubbing/cyanosis or edema Neuro: nonfocal, patient AA&O x 4, speech intact, no facial droop, moving all extremities on command with equal strength 5/5 Results & Data Results & Data Vital Signs (Past 12 Hours) Vital Signs Temp Pulse Pulse Resp BP BP Pulse Ox 09/20/24 23:33 66 18 129/75 95 09/20/24 21:48 64 18 91 09/20/24 21:34 61 16 161/91 H 94 09/20/24 21:32 63 09/20/24 21:01 36.5 C 74 16 167/90 H 96 O2 Del Method 09/20/24 23:33 Room Air 09/20/24 21:48 Room Air 09/20/24 21:34 Room Air 09/20/24 21:32 09/20/24 21:01 Room Air Laboratory Results Laboratory Results WBC 9.28 K/ul (4.8-10.8) 09/20/24 21: RBC 5.30 M/uL (4.70-6.10) 09/20/24 21: Hgb 16.8 g/dl (14.0-18.0) 09/20/24: POC Hgb 15.3 g/dl (14.0-18.0) 09/20/24 22:18 Hct 48.2 % (42.0-52.0) 09/20/24: POC Hct 45 % (42-52) 09/20/24 22:18 MCV 90.9 fL (80.0-100.0) 09/20/24: MCH 31.7 pg (25.0-34.0) 09/20/24: MCHC 34.9 g/dL (32.0-36.0) 09/20/24: RDW Std Deviation 42.5 fL (36.4-46.3) 09/20/24: RDW Coeff of Darcy 12.7 % (11.5-14.5) 09/20/24: Plt Count 138 K/uL (130-400) 09/20/24 21:28 MPV 10.8 fL (9.4-12.4) 09/20/24: Immature Gran % (Auto) 0.2 % 09/20/24 21: Neut % (Auto) 76.8 % 09/20/24 21: Lymph % (Auto) 12.8 % 09/20/24: [place] % (Auto) 8.2 % 09/20/24: Eos % (Auto) 1.5 % 09/20/24: Baso % (Auto) 0.5 % 09/20/24: Neut # (Auto) 7.12 K/uL (1.40-6.50) H 09/20/24: Lymph # (Auto) 1.19 K/uL (1.20-3.40) L 09/20/24: [place] # (Auto) 0.76 K/uL (0.11-0.59) H 09/20/24: Eos # (Auto) 0.14 K/uL (0.00-0.50) 09/20/24: Baso # (Auto) 0.05 K/uL (0.00-0.20) 09/20/24: Immature Gran # (Auto) 0.02 K/uL (0.01-0.20) 09/20/24: RBC Morphology Unremarkable 09/20/24 21: POC Sodium 142 mmol/L (135-144) 09/20/24 22:18 Sodium 139 mmol/L (136-145) 09/20/24: POC Potassium 4.0 mmol/L (3.3-5.0) 09/20/24 22:18 Potassium TNP 09/20/24 21: POC Chloride 105 mmol/L (101-112) 09/20/24 22:18 Chloride 105 mmol/L (98-107) 09/20/24: Carbon Dioxide 25 mmol/L (21-32) 09/20/24 21: POC Total CO2 22 mmol/L (24-31) L 09/20/24 22:18 Anion Gap 9 (3-11) 09/20/24: POC Anion Gap 20.0 mmol/L (16-25) 09/20/24 22:18 POC BUN 13 mg/dl (7-18) 09/20/24 22:18 BUN 15 mg/dl (6-23) 09/20/24 21: Creatinine 1.46 mg/dl (0.6-1.4) H 09/20/24 21:28 POC Creatinine 1.5 mg/dl (0.6-1.3) H 09/20/24 22:18 Est Cr Clr Drug Dosing 51.3 ml/min 09/20/24 21: eGFR 49.53 09/20/24 21: BUN/Creatinine Ratio 10.3 (10-20) 09/20/24 21: Glucose 117 mg/dl (70-99(Fasting)) H 09/20/24 21: POC Glucose 98 mg/dl (70-99) 09/21/24 01:32 POC Glucose (other) 113 mg/dl (70-99) H 09/20/24 22:18 Calcium 9.8 mg/dl (8.6-10.3) 09/20/24 21: POC Ioniz Calcium [place] 1.18 mmol/l (1.12-1.32) 09/20/24 22:18 Total Bilirubin 1.7 mg/dl (0.2-1.0) H 09/20/24 21:28 AST TNP 09/20/24 21: ALT 31 U/L (7-52) 09/20/24 21: Alkaline Phosphatase 55 U/L (34-104) 09/20/24 21: Troponin I High Sens 14.6 pg/ml (0-20) 09/20/24 21: Total Protein 7.5 gm/dl (6.0-8.3) 09/20/24 21: Albumin 4.3 gm/dl (3.4-5.0) 09/20/24: Globulin 3.2 gm/dl (2.5-4.0) 09/20/24: Albumin/Globulin Ratio 1.3 (0.9-2) 09/20/24 21: Lipase 33 U/L (11-82) 09/20/24 21:28 Urine Color [place] 09/20/24 Unknown Urine Appearance Turbid (Clear) A 09/20/24 Unknown Urine pH 5.0 (4.5-7.5) 09/20/24 Unknown Ur Specific [place] 1.021 (1.000-1.030) 09/20/24 Unknown Urine Protein 3+ (Negative) H 09/20/24 Unknown Urine Glucose (UA) Negative (Negative) 09/20/24 Unknown Urine Ketones 2+ (Negative) H 09/20/24 Unknown Urine Blood 3+ (Negative) H 09/20/24 Unknown Urine Nitrite Negative (Negative) 09/20/24 Unknown Urine Bilirubin Negative (Negative) 09/20/24 Unknown Urine Urobilinogen Negative (Negative) 09/20/24 Unknown Ur Leukocyte Esterase 1+ (Negative) H 09/20/24 Unknown Urine WBC (Auto) 11-20 /hpf (0-5) H 09/20/24 Unknown Urine RBC (Auto) >20 /hpf (0-2) H 09/20/24 Unknown U Hyaline Cast (Auto) 0-2 /lpf (0-2) 09/20/24 Unknown U Epithel Cells (Auto) 6-10 /hpf (0-2) H 09/20/24 Unknown Urine Bacteria (Auto) None Seen (None Seen) 09/20/24 Unknown Amorphous Sediment Present (None Prsent) A 09/20/24 Unknown Urine Comment 09/20/24 Unknown Impressions Abdomen/Pelvis CT 09/20/24 21:49 Exam(s): CT ABDOMEN + PELVIS With Contrast IV Amt: 93 ML OPTIRAY 320 EXAM: CT Abdomen and Pelvis With Intravenous Contrast CLINICAL HISTORY: Severe flank and abdominal pain. TECHNIQUE: Axial computed tomography images of the abdomen and pelvis with intravenous contrast. CTDI is 28.14 mGy and DLP is 1451.1 mGy-cm. Automated exposure control was utilized for the study. A dose lowering technique was utilized adhering to the principles of ALARA. CONTRAST: Patient received 93 ML OPTIRAY 320 of IV contrast COMPARISON: 01/04/2024 CT pelvis FINDINGS: Lung bases: Unremarkable. No mass. No consolidation. ABDOMEN: Liver: Fatty infiltration of the liver. No focal liver lesion is seen. Gallbladder and bile ducts: Previous cholecystectomy. No ductal dilation. Pancreas: Unremarkable. No mass. No ductal dilation. Spleen: Unremarkable. No splenomegaly. Adrenals: Unremarkable. No mass. Kidneys and ureters: Mild right hydronephrosis and proximal hydroureter down to a 6 mm calculus in the mid right ureter located approximately 7 cm from the ureterovesicular junction. Nonobstructive 3 mm calculus in the mid right kidney. Simple cysts in both kidneys measuring up to 2.5 cm on the left. No follow-up is required. Stomach and bowel: Diverticulosis throughout the entire colon without evidence of acute diverticulitis. The appendix is normal. No acute inflammatory changes are seen involving the bowel. No obstruction. PELVIS: Appendix: See above. Bladder: Unremarkable. No mass. Reproductive: Unremarkable as visualized. ABDOMEN and PELVIS: Intraperitoneal space: Unremarkable. No free air. No significant fluid collection. Bones/joints: Previous instrumentation and fusion of L4 through S1 with moderate to severe degenerative changes in the mid lumbar spine. No acute fracture is seen. No dislocation. Soft tissues: Unremarkable. Vasculature: The abdominal aorta is mildly calcified but nondilated. Lymph nodes: Unremarkable. No enlarged lymph nodes. IMPRESSION: 1. Mild right hydronephrosis and proximal hydroureter down to a 6 mm calculus in the mid right ureter located approximately 7 cm from the ureterovesicular junction. 2. Diverticulosis throughout the entire colon without evidence of acute diverticulitis. The appendix is normal. No acute inflammatory changes are seen involving the bowel. Electronically signed by: Gen Chapin MD 09/21/24 02:04 AM PG Care Time/CCT Total # of Minutes Spent Total Time Spent with Patient: Total time spent is greater than 50% in coordination of care (as documented) at patient's floor/unit and/or counseling patient: Coding Level of Care Code 78786 INT INP/OBS CARE 3/75MIN Diagnoses Ureterolithiasis N20.1 GERD (gastroesophageal reflux disease) K21.9 Atrial fibrillation I48.91 Hypertension I10 Sleep apnea G47.30
[2024-09-21] MEDS: MoRPHine SULFATE 4 MG/ML 1 ML CARP\\VIAL IV PRN (00:30)
--- NOTE | 2024-09-21 01:08 | Emergency Department Note ---
ED Visit Note I was consulted by the Advanced Practice Provider. I personally made/approved the management plan and take responsibility for the patient management. I performed a substantive portion of the visit. This includes the aspects of data review, imaging interpretation and medical decision making. Please refer to Sarah Wooten PA-C's notes for further details of the history, physical and visit. .
[2024-09-21] MEDS ORDERED: KETOROLAC TROMETHAMINE 15 MG/ML VIAL IV PRN (01:39)
[2024-09-21] MEDS ORDERED: DOCUSATE SODIUM 100 MG CAP PO PRN (01:39)
[2024-09-21] MEDS ORDERED: ONDANSETRON INJ 2 MG/ML 2 ML VIAL IV PRN ×2 (01:39→13:29)
--- NOTE | 2024-09-21 02:06 | CT Scan Report ---
Exam(s): CT ABDOMEN + PELVIS With Contrast IV Amt: 93 ML OPTIRAY 320 EXAM: CT Abdomen and Pelvis With Intravenous Contrast CLINICAL HISTORY: Severe flank and abdominal pain. TECHNIQUE: Axial computed tomography images of the abdomen and pelvis with intravenous contrast. CTDI is 28.14 mGy and DLP is 1451.1 mGy-cm. Automated exposure control was utilized for the study. A dose lowering technique was utilized adhering to the principles of ALARA. CONTRAST: Patient received 93 ML OPTIRAY 320 of IV contrast COMPARISON: 01/04/2024 CT pelvis FINDINGS: Lung bases: Unremarkable. No mass. No consolidation. ABDOMEN: Liver: Fatty infiltration of the liver. No focal liver lesion is seen. Gallbladder and bile ducts: Previous cholecystectomy. No ductal dilation. Pancreas: Unremarkable. No mass. No ductal dilation. Spleen: Unremarkable. No splenomegaly. Adrenals: Unremarkable. No mass. Kidneys and ureters: Mild right hydronephrosis and proximal hydroureter down to a 6 mm calculus in the mid right ureter located approximately 7 cm from the ureterovesicular junction. Nonobstructive 3 mm calculus in the mid right kidney. Simple cysts in both kidneys measuring up to 2.5 cm on the left. No follow-up is required. Stomach and bowel: Diverticulosis throughout the entire colon without evidence of acute diverticulitis. The appendix is normal. No acute inflammatory changes are seen involving the bowel. No obstruction. PELVIS: Appendix: See above. Bladder: Unremarkable. No mass. Reproductive: Unremarkable as visualized. ABDOMEN and PELVIS: Intraperitoneal space: Unremarkable. No free air. No significant fluid collection. Bones/joints: Previous instrumentation and fusion of L4 through S1 with moderate to severe degenerative changes in the mid lumbar spine. No acute fracture is seen. No dislocation. Soft tissues: Unremarkable. Vasculature: The abdominal aorta is mildly calcified but nondilated. Lymph nodes: Unremarkable. No enlarged lymph nodes. IMPRESSION: 1. Mild right hydronephrosis and proximal hydroureter down to a 6 mm calculus in the mid right ureter located approximately 7 cm from the ureterovesicular junction. 2. Diverticulosis throughout the entire colon without evidence of acute diverticulitis. The appendix is normal. No acute inflammatory changes are seen involving the bowel. Electronically signed by: Gen Chapin MD 09/21/24 02:04 AM
[2024-09-21] MEDS: LACTATED RINGER'S 1,000 ML IV SCH ×2 (02:08→12:57)
[2024-09-21 07:04] LABS: Hematocrit (blood only) 43.1 % (42.0-52.0); Hemoglobin 14.6 g/dl (14.0-18.0); Mean Corpuscular Hemoglobin 31.3 pg (25.0-34.0); Mean Corpuscular Hgb Conc 33.9 g/dL (32.0-36.0); Mean Corpuscular Volume 92.5 fL (80.0-100.0); Platelet Count 106 K/uL (130-400); RDW Coefficient of Variation 12.7 % (11.5-14.5); RDW Standard Deviation 43.3 fL (36.4-46.3); Red Blood Count 4.66 M/uL (4.70-6.10); White Blood Count 6.73 K/ul (4.8-10.8)
[2024-09-21] MEDS: ACETAMINOPHEN 325 MG TAB PO PRN (07:25)
[2024-09-21] MEDS: TAMSULOSIN HCL 0.4 MG CAP PO SCH (07:26)
[2024-09-21] MEDS: PANTOprazole 40 MG TAB PO SCH (07:26)
[2024-09-21 07:28] LABS: BUN Creatinine Ratio 7.6 (10-20); Calcium 8.6 mg/dl (8.6-10.3); Creatinine Clr Calc Pharmacy 44.1 ml/min; Potassium 4.3 mmol/L (3.5-5.1)
--- NOTE | 2024-09-21 08:57 | Urology Consultation ---
<Statement entered by Candido Lizarraga MD - 09/21/24 09:13> 74-year-old male with right ureteral stone and BELEN. We will plan on cystoscopy, right retrograde pyelogram and right ureteral stent placement to allow maximal drainage of his kidneys. Date of Consultation September 21, 2024 Assessment & Plan (1) Ureterolithiasis: (2) Renal colic on right side: 74-year-old male admitted for right flank pain secondary to an obstructing 6 mm right mid ureteral calculus with hydronephrosis. Patient is afebrile, hemodynamically stable Labs reviewedcreatinine 1.70, WBC 6.73, hemoglobin 14.6 Urinalysis on arrival with 3+ blood, 1+ LE, 11-20 WBC, negative for bacteria Urine culture pending He was treated with IV ceftriaxone in the ED CT abdomen pelvis reviewed and discussed with patient Discussed options for stone management including medical expulsive therapy versus surgical intervention Specifically discussed cystoscopy and right ureteral stent placement while inpatient with stone treatment at a later date Ureteral stents discussed in detail Discussed outpatient surgical options if pain is controlled After discussion, he wishes to proceed with cystoscopy and right ureteral stent placement today Proceed to OR for cystoscopy, retrograde pyelogram, right ureteral stent placement Risk and benefits of procedure to be reviewed with patient by Dr. Lizarraga Keep n.p.o. for procedure Continue to strain all urine Will cover with preoperative antibiotics Continue supportive care medical management per hospital medicine service History of Present Illness Reason for Consultation: renal stone Attending Physician: Candido Sullivan MD, PhD History of Present Illness This is a 74-year-old male who presented to the emergency department on 09/20/2024 for evaluation of right flank and abdominal pain. On arrival, he was afebrile, hypertensive. Lab work showed WBC 9.28, hemoglobin 16.8, creatinine 1.46. Urinalysis showed 3+ blood, 1+ LE, 11-20 WBC, >20 RBC, 6-10 epithelial cells and negative for bacteria. Workup in ED included CT abdomen and pelvis with IV contrast which was notable for mild right hydronephrosis and proximal hydroureter secondary to an obstructing 6 mm calculus in the mid right ureter. He was treated with IV fluids, acetaminophen, morphine, ondansetron and ceftriaxone. He was admitted to the hospital medicine service for ureterolithiasis. Urology is consulted for right ureteral stone. Labs today reviewedCreatinine 1.7, WBC 6.73, hemoglobin 14.6 Urine culture pending He was initiated on tamsulosin Patient seen and examined at bedside. He is awake and resting in bed. Feels better at present. He reports recurrent right flank/abdominal pain for the past 2 nights. No nausea or vomiting. No fever or chills. He is voiding spontaneously. Has noted darker urine, but no gross hematuria. He is currently NPO. No prior stone history. Allergies Allergy/AdvReac Type Severity Reaction Status Date / Time No Known Allergies Allergy Unknown Verified 09/21/24 00:15 Home Medications Medication Instructions Recorded Confirmed Type aspirin 81 mg tablet,delayed 81 mg PO QAM 09/16/18 09/21/24 History release (Morris Low Dose Aspirin) cholecalciferol (vitamin D3) 25 1,000 unit PO QAM 09/16/18 09/21/24 History mcg (1,000 unit) tablet (Vitamin D3) cholestyramine (with sugar) 4 gram 4 g PO QAM 09/16/18 09/21/24 History oral powder sacubitril 49 mg-valsartan 51 mg 1 tab PO BID 08/20/22 09/21/24 History tablet (Entresto) metoprolol succinate 50 mg 25 mg PO QPM 09/10/22 09/21/24 History tablet,extended release 24 hr omeprazole 40 mg capsule,delayed 40 mg PO QAM 09/10/22 09/21/24 History release apixaban 5 mg tablet (Eliquis) 5 mg PO BID 12/10/22 09/21/24 History Patient History Medical History Prediabetes Rotator cuff tear, right Tendinopathy of right biceps tendon GERD (gastroesophageal reflux disease) well controlled and stable 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 Left bundle branch block (LBBB) with associated long 1st degree AVB- s/p dual chamber PPM ([employer]- 2020) LVH (left ventricular hypertrophy) Severe concentric Hearing deficit No hearing at all on right side- s/p cochlear implant to right side- does not function Hypertension Sleep apnea bipap Surgical History Hx of colonoscopy with polypectomy Hx of bilateral cataract extraction (2023) Hx of spinal fusion (2003) L4-L5 fusion History of tooth extraction S/P LASIK surgery of both eyes History of carpal tunnel surgery of right wrist 20 years ago History of cochlear implant x2--RT EAR H/O endoscopic retrograde cholangiopancreatography Hx of shoulder surgery left History of open reduction and internal fixation (ORIF) procedure left ankle History of cholecystectomy (12/18/15) 12/18/15 - MAC #4, ETT #7.5, Grade 2 View Family History Other No family history of adverse response to anesthesia Social History Smoking Status: Never smoker Tobacco Type: Cigarettes Cigarettes Per Day: around 1993; Second Hand Exposure: No; Do You Dip or Chew Tobacco: No; Hx Alcohol Use: No Hx Substance Use: No Preferred Language: Angolan Communication Ability: Effective Public Relations Required: Yes Beliefs That Will Affect Care: None Current Living Situation: Spouse Other Information That Helps Us Care for You: No Feels Safe at Home: Yes Safety Concerns: Feels Safe At This Time Assistive Devices: None Review of Systems Review of Systems: All systems reviewed & are unremarkable except as noted in HPI & below Physical Exam Constitutional: well developed and well nourished; no acute distress Respiratory: normal respiratory effort; no respiratory distress and no labored breathing Gastrointestinal (Abdomen): Inspection/Auscultation: abdomen normal to inspection Musculoskeletal: Head/Neck/Chest: normocephalic Neurologic: moves all extremities and awake Psychiatric: Orientation: alert and oriented x 3 Results & Data Vital Signs (Past 12 Hours) Vital Signs Temp Pulse Pulse Pulse Resp BP BP 09/21/24 07:23 36.6 C 63 18 127/82 09/21/24 02:16 36.7 C 61 18 154/82 H 09/21/24 02:04 65 19 09/20/24 23:33 66 18 129/75 09/20/24 21:48 64 18 09/20/24 21:34 61 16 161/91 H 09/20/24 21:32 63 09/20/24 21:01 36.5 C 74 16 167/90 H Pulse Ox O2 Del Method FiO2 09/21/24 07:23 95 Room Air 09/21/24 02:16 94 Room Air 09/21/24 02:04 93 21 09/20/24 23:33 95 Room Air 09/20/24 21:48 91 Room Air 09/20/24 21:34 94 Room Air 09/20/24 21:32 09/20/24 21:01 96 Room Air PG Care Time/CCT Total # of Minutes Spent Total Time Spent with Patient: Total time spent is greater than 50% in coordination of care (as documented) at patient's floor/unit and/or counseling patient: Coding Level of Care Code 26377 INT INP/OBS CARE 2/55MIN Diagnoses Ureterolithiasis N20.1 Renal colic on right side N23
--- NOTE | 2024-09-21 13:16 | Anesthesiology Consultation ---
Date of Service September 21, 2024 Assessment & Plan Chart Review Chart Review: Acceptable Risk for Surgery Consults Requested none History Surgery Operation Date: 09/21/24 12:15 Proposed Procedures p Cystoscopy, Right Stent Placement - Candido Lizarraga MD Height/Weight Height: 5 ft 9 in Weight: 104.7 kg Allergies Allergy/AdvReac Type Severity Reaction Status Date / Time No Known Allergies Allergy Unknown Verified 09/21/24 00:15 Medications Home Medications Medication Instructions Recorded Confirmed Last Taken aspirin 81 mg tablet,delayed 81 mg PO QAM 09/16/18 09/21/24 02/10/24 08:00 release (Morris Low Dose Aspirin) cholecalciferol (vitamin D3) 25 1,000 unit PO QAM 09/16/18 09/21/24 02/09/24 08:00 mcg (1,000 unit) tablet (Vitamin D3) cholestyramine (with sugar) 4 gram 4 g PO QAM 09/16/18 09/21/24 02/09/24 08:00 oral powder sacubitril 49 mg-valsartan 51 mg 1 tab PO BID 08/20/22 09/21/24 02/10/24 20:00 tablet (Entresto) metoprolol succinate 50 mg 25 mg PO QPM 09/10/22 09/21/24 02/10/24 08:00 tablet,extended release 24 hr omeprazole 40 mg capsule,delayed 40 mg PO QAM 09/10/22 09/21/24 02/11/24 04:00 release apixaban 5 mg tablet (Eliquis) 5 mg PO BID 12/10/22 09/21/24 02/09/24 08:00 Active Medications Generic Name Dose Route Start Last Admin Trade Name Freq PRN Reason Stop Dose Admin Acetaminophen 650 mg 09/21/24 01:39 09/21/24 07:25 Acetaminophen 325 Mg Tab PO 10/21/24 01:38 650 mg Q4H PRN Administration Pain or Fever Lactated Ringer's 1,000 mls @ 125 mls/hr 09/21/24 01:39 09/21/24 10:16 Lr IV 09/21/24 17:38 125 mls/hr .Q8H JES Administration Lactated Ringer's 1,000 mls @ 15 mls/hr 09/21/24 13:00 09/21/24 13:02 Lr IV 09/24/24 12:59 Not Given .Q24H JES Pantoprazole Sodium 40 mg 09/21/24 09:00 09/21/24 07:26 Pantoprazole 40 Mg Tab PO 10/21/24 08:59 40 mg QAM JES Administration Tamsulosin HCl 0.4 mg 09/21/24 09:00 09/21/24 07:26 Tamsulosin Hcl 0.4 Mg Cap PO 10/21/24 08:59 0.4 mg QAM JES Administration NPO Date Last Intake of Fluids: 09/20/24 Time Last Intake of Fluids: 20:00 Last Intake of Fluids Comment: sip water at 0900 Date Last Intake of Solids: 09/20/24 Time Last Intake of Solids: 14:00 Past Medical History Medical History Prediabetes Rotator cuff tear, right Tendinopathy of right biceps tendon GERD (gastroesophageal reflux disease) well controlled and stable 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 Left bundle branch block (LBBB) with associated long 1st degree AVB- s/p dual chamber PPM ([employer]- 2020) LVH (left ventricular hypertrophy) Severe concentric Hearing deficit No hearing at all on right side- s/p cochlear implant to right side- does not function Hypertension Sleep apnea bipap Past Family History Family History Other No family history of adverse response to anesthesia Past Surgical History Surgical History Hx of colonoscopy with polypectomy Hx of bilateral cataract extraction (2023) Hx of spinal fusion (2003) L4-L5 fusion History of tooth extraction S/P LASIK surgery of both eyes History of carpal tunnel surgery of right wrist 20 years ago History of cochlear implant x2--RT EAR H/O endoscopic retrograde cholangiopancreatography Hx of shoulder surgery left History of open reduction and internal fixation (ORIF) procedure left ankle History of cholecystectomy (12/18/15) 12/18/15 - MAC #4, ETT #7.5, Grade 2 View Social History Smoking Status: Never smoker tobacco type: cigarettes Smoking cigarettes per day: around 1993 Do You Dip or Chew Tobacco: No Hx Alcohol Use: No Alcohol type: beer and hard liquor alcohol intake frequency: holidays/special occasions only Hx Substance Use: No substance use type: does not use Physical Exam Vital Signs Last Vital Signs Temp 36.5 C 09/21/24 12:50 Pulse 64 09/21/24 12:50 Resp 20 09/21/24 12:50 BP 115/67 09/21/24 12:50 Pulse Ox 92 09/21/24 12:50 O2 Del Method Room Air 09/21/24 12:50 FiO2 21 09/21/24 02:04 Testing Laboratory Results 09/21/24 06:39 09/21/24 06:39 Urine Color [place] 09/20/24 Unknown Urine Appearance Turbid (Clear) A 09/20/24 Unknown Urine pH 5.0 (4.5-7.5) 09/20/24 Unknown Ur Specific [place] 1.021 (1.000-1.030) 09/20/24 Unknown Urine Protein 3+ (Negative) H 09/20/24 Unknown Urine Glucose (UA) Negative (Negative) 09/20/24 Unknown Urine Ketones 2+ (Negative) H 09/20/24 Unknown Urine Nitrite Negative (Negative) 09/20/24 Unknown Ur Leukocyte Esterase 1+ (Negative) H 09/20/24 Unknown Urine WBC (Auto) 11-20 /hpf (0-5) H 09/20/24 Unknown Urine RBC (Auto) >20 /hpf (0-2) H 09/20/24 Unknown U Hyaline Cast (Auto) 0-2 /lpf (0-2) 09/20/24 Unknown U Epithel Cells (Auto) 6-10 /hpf (0-2) H 09/20/24 Unknown Urine Bacteria (Auto) None Seen (None Seen) 09/20/24 Unknown 09/21/24 09/21/24 09/21/24 11:48 05:57 01:32 POC Glucose 99 88 98
[2024-09-21] MEDS ORDERED: PROMETHAZINE HCL 6.25 MG in SODIUM CHLORIDE 0.9% 50 ML IV PRN (13:29)
[2024-09-21] MEDS ORDERED: ePHEDrine sulfate 50 MG/ML AMP IV PRN (13:29)
[2024-09-21] MEDS ORDERED: ATROPINE SULFATE 0.1 MG/ML 10ML SYR IV PRN (13:29)
[2024-09-21] MEDS ORDERED: HYDROmorphone INJ 2 MG/ML SYR/VIAL IV PRN (13:29)
[2024-09-21] MEDS ORDERED: fentaNYL citrate PF 100 MCG/2 ML VIAL IV PRN (13:29)
[2024-09-21] MEDS ORDERED: MIDAZOLAM HCL 1 MG/ML 2ML VIAL ONE (13:32)
[2024-09-21] MEDS ORDERED: fentaNYL citrate PF 100 MCG/2 ML VIAL ONE (13:32)
[2024-09-21] MEDS: ceFAZolin 2,000 MG/15 ML IV PUSH IV ONE (13:40)
[2024-09-21] MEDS: ceFAZolin 2000MG 2,000 MG/15 ML SYR IV ONE (13:40)
[2024-09-21] MEDS: DIATRIZOATE MEGLUMINE 30% 100ML VIAL INSTIL ONE (13:57)
[2024-09-21] MEDS ORDERED: LIDOCAINE 2% 2 ML VIAL/AMP(20MG/ML) INFIL ONE (14:01)
[2024-09-21] MEDS ORDERED: PROPOFOL IV EMULSION 10 MG/ML 20 ML VIAL IV ONE (14:01)
[2024-09-21] MEDS ORDERED: PHENYLEPHRINE 100MCG/ML 5ML SYR ONE (14:01)
--- NOTE | 2024-09-21 14:09 | Operative Report ---
PG Post Operative Report Pre & Post Diagnosis Operation Date: 09/21/24 12:15 Pre-Op Diagnosis: Right Renal Stone Post-Op Diagnosis: Right Renal Stone I identified the patient and participated in the time-out.: Yes Procedure Operation Date: 09/21/24 12:15 Actual Procedures p Cystoscopy, right retrograde pyelogram, right Ureteral Stent Placement(Right) - Candido Lizarraga MD Surgeon Candido Lizarraga MD Quality Control Expert None Estimated Blood Loss 0 Findings See Below Successful right ureteral stent placement Specimens None Drains 6 Lithuanian x 26 cm double-J ureteral stent in the right ureter Anesthesia Type MAC Disposition Accompanied Patient To Recovery: Yes Disposition: Recovery Room Indications This is a 74-year-old male recently found to have a right ureteral stone and worsening kidney function. He is brought to the OR for right ureteral stent placement. Description of Procedure The patient was identified in the holding area and informed consent was confirmed. He was marked on the right side, then was taken to the operating room where anesthesia was initiated. He was placed in the dorsal lithotomy posi tion with all pressure points appropriately padded. He was prepped and draped in the usual sterile fashion and a preoperative timeout was performed. A well-lubricated cystoscope was inserted per urethra and panendoscopy was performed. The pendulous urethra was normal with no strictures or mucosal abnormalities. Prostate was enlarged. His bladder appeared grossly normal with no tumors or stones appreciated. Ureteral orifices were in orthotopic position bilaterally. A 5 Lithuanian open-ended catheter was inserted and used to intubate the right ureteral orifice. A retrograde pyelogram was performed using Cystografin. There was an area of contrast did not opacify, likely at the level of the stone. There was hydronephrosis and hydroureter proximal to this. A 0.038 inch zip wire was advanced up to the kidney under fluoroscopic guidance. Over the wire, a 6 Lithuanian x 26 cm double-J ureteral stent was advanced. When the wire was removed, there was a good curl in the kidney under fluoroscopic guidance. A curl was visualized in the bladder with the cystoscope. At this point the bladder was drained and all instrumentation was removed. The patient was then awakened from anesthesia and was brought to the PACU in stable condition. I attest to the content of the Intraoperative Record and any orders documented therein. Any exceptions are noted below.
--- NOTE | 2024-09-21 14:40 | Fluoroscopy Report ---
FL retrograde includes kub CLINICAL HISTORY: RIGHT STENT COMPARISON STUDY: None FLUOROSCOPY TIME: 10 seconds FLUOROSCOPY IMAGES: 1 EXPOSURE DOSE: 2.6 mGy FINDINGS: Fluoroscopy was provided for urologic procedure. IMPRESSION: Intraoperative fluoroscopy. ACT 112: Negative or not required by law. Electronically signed by: Hieu Marie M.D. 09/21/2024 2:38 PM
[2024-09-21] MEDS: PHENYLEPHRINE 100MCG/ML 5ML SYR ONE (15:30)
[2024-09-21 15:51] VITALS: PULSE 62; RESP 18
[2024-09-21 16:18] VITALS: O2SAT 93
--- NOTE | 2024-09-21 17:09 | Discharge Summary ---
Discharge Summary Date of Service September 21, 2024 Principal Dx & Hospital Course #1 = Principal Diagnosis (1) Ureterolithiasis: (2) GERD (gastroesophageal reflux disease): (3) Atrial fibrillation: (4) Hypertension: (5) Sleep apnea: Plan 74 years old male with PMH of FULL CODE @ home, obesity with BMI 34.1 (height 175.3 cm; weight 104.7 kg), ANGELO on nocturnal BIPAP, GERD on omeprazole 40mg PO qam, diverticulosis of entire colon without acute diverticulitis (as noted on 09/20/2024 CT abd/pelvis with IV contrast), paroxysmal AFIB, s/p PPM, on metoprolol succinate 25mg PO qafternoon and eliquis 5mg PO bid, chronic RV systolic CHF with RV systolic function reduced and preserved LVEF 70% (as noted on 06/21/2023, 9:55am TTE, CARDS Dr. Ba Almendarez), chronic diastolic CHF with preserved LVEF 65%, normal RV systolic function, and grade I LV diastolic dysfunction (as noted on 03/29/2017, 12:40pm TTE, CARDS Dr. Ba Almendarez), congenital bicuspid aortic valve, s/p 25mm Swan bioprosthetic AVR, dilated ascending aorta @ 4.4 cm (as noted on 06/21/2023, 9:55am TTE, CARDS Dr. Ba Almendarez), who presented to [facility] ER on 09/20/2024 with complaints of right flank pain without fevers, chills, diaphoresis, nausea, vomiting, diarrhea, abdominal pain, pelvic pain, flank pain, hematuria, dysuria, etc., for the past 2 days. Patient was subsequently admitted to the inpatient hospitalist service @ [facility] on 09/20/2024 with the following diagnoses: 1. Mild right hydronephrosis and proximal hydroureter down to a 6 mm calculus in the mid right ureter located approximately 7 cm from the ureterovesicular junction. 2. Acute kidney injury with admission creatinine 1.46 mg/dL, GFR 49.53 mL/min (09/20/2024, 9:28pm). The following medical issues were addressed while the patient remained in [facility] from 09/20/2024 through 09/21/2024: 1. Mild right hydronephrosis and proximal hydroureter down to a 6 mm calculus in the mid right ureter located approximately 7 cm from the ureterovesicular junction. Patient underwent cystoscopy, right retrograde pyelogram, and right ureteral stent insertion (09/21/2024, 2:07pm) with [facility] Urologist Dr. Candido Lizarraga. Patient feels well post-operatively with no co mplaints of fevers, chills, diaphoresis, nausea, vomiting, diarrhea, abdominal pain, pelvic pain, flank pain, hematuria, dysuria, etc., and subsequently ate his dinner heartily before having his , Ms. Brenda Sargent ( ) drive him back home. Patient will follow up with [facility] Urologist Dr. Candido Lizarraga within 5-7 days of hospital discharge to discuss how long patient's right ureteral stent will remain in situ, as well as to undergo repeat creatinine level testing. 2. Acute kidney injury with admission creatinine 1.46 mg/dL, GFR 49.53 mL/min (09/20/2024, 9:28pm). cf., repeat creatinine 1.70 mg/dL, GFR 41.26 mL/min (09/21/2024, 6:39am). cf., historical creatinine range, 2.55 mg/dL (08/20/2022, 5:17pm) 2.23 mg/dL (08/21/2022, 5:54am). 1.70 mg/dL (08/22/2022, 7:12am). 1.10 mg/dL (01/17/2024, 12:00am). cf., U/A (09/20/2024): turbid orange, blood 3+ with RBC > 20, LE 1+, nitrite-, WBC 11-20, epithelial cells 6-10, bacteria 0 cf., urine culture (09/20/2024): <1,000 cfu/mL Patient received ceftriaxone 2g IV x 1 dose (09/20/2024, 11:29pm), cefazolin 2g IV x 1 dose (09/21/2024, 1:40pm) empirically while in [facility]. Patient will not continue with empiric antibiotics on hospital discharge home on 09/21/2024 given urine culture (09/20/2024): <1,000 cfu/mL. In addition, patient will not resume his home-scheduled Entresto (sacubitril 49mg - valsartan 51mg) PO bid until 09/27/2024, or until you undergo repeat creatinine level testing with your PCP Dr. Kesha Lopez, or your Urologist Dr. Candido Lizarraga, to make sure that your acute kidney injury with admission creatinine 1.46 mg/dL (09/20/2024, 9:28pm) and discharge creatinine 1.70 mg/dL (09/21/2024, 6:39am) is resolving, as the possibility remains that patient's acute kidney injury--if not due to 6mm mid-right ureteral stone causing right- sided hydronephrosis--may be due to patient's home-scheduled Entresto (sacubitril 49mg - valsartan 51mg) PO bid. In addition, patient was advised to drink at least 8 ounces of water while awake in order to rehydrate kidneys, in addition to the 1 liter of 0.9% NS @ 999 mL/hr (09/20/2024, 10:03pm) that patient received while in [facility]. Patient reports that he will comply with these recommendations. Other secondary medical issues included: #GERD Protonix 40 mg p.o. every morning #Atrial fibrillation, s/p PPM, now with AV dual pacing @ 63, QTC 489 (as noted on 09/20/2024, 10:24pm EKG). Continue metoprolol succinate 25mg PO q afternoon. Hold Eliquis 5mg PO bid. #Sleep apnea BiPAP nightly Admission HPI Per Admitting Provider Juan Carlos Sargent is a pleasant 74yo male With history of atrial fibrillation, hypertension, GERD and ANGELO presenting with right flank pain. Patient woke from sleep 2 nights ago at 0400 with lower abdominal cramping. He had a bowel movement then developed dull but severe right flank pain. He took some Pepto- Bismol and the pain ultimately improved after some time. Patient had a recurrence of the pain today around 1600. Again the pain began as a lower abdominal cramp then progressed to severe right flank pain. Patient denies fever, chills, dysuria, frequency or urgency No chest pain, cough or shortness of breath No additional complaints at this time ER course: Normal saline 500 mL Zofran 4 mg Tylenol 1 g Ceftriaxone 2 mg Discharge Exam Constitutional General: Comfortable, coherent, cooperative. Wide awake and alert. Not confused, lethargic, or obtunded. Patient speaks in complete, fluent, and articulate sentences without pause, with O2 sat 93% on room air (09/21/2024, 5:16pm). HEENT: Normocephalic, atraumatic. Extra-ocular muscles intact. Pupils equally round and reactive to light. No nystagmus, gaze paresis, anisocoria, miosis, mydriasis, hyphema, scleral injection, conjunctivitis, or pterygium. No otorrhea. No pharyngeal erythema, edema, or discharge. Neck: Supple, no stridor, bruit, goiter, or hepato-jugular reflux. Jugular venous pressure is estimated to be 3 cm above the sternal angle of Justin, which in turn, is 5 cm above the level of the right atrium; with jugular venous pressure estimated to be 8 cm, then, there is no jugular venous distention on 09/21/2024. Lymphatics: No cervical (anterior/posterior), supraclavicular, infraclavicular, axillary, epitrochlear, or inguinal adenopathy. Chest: Symmetric rise and fall with respirations. Non-tender to palpation. Lungs: Clear to auscultation and percussion. No audible expiratory wheeze, egophony, pectoriloquy, increase in tactile fremitus, or flatness/dullness to percussion at the bases. Heart: Regular rate and rhythm. S1 and S2 noted. No S3 or S4 summation gallop. No tripartite friction rub. Grade II/ early systolic murmur @ LLSB without radiation to the carotids, axilla, or back, and which remains invariant in regards to the respiratory cycle. Abdomen: Soft, non-tender, non-distended. No rebound, guarding, Haskins's sign, or organomegaly. Bowel sounds auscultated in all 4 quadrants. Extremities: No clubbing, cyanosis, or edema in upper extremities or lower extremities bilaterally. 2+ pedal pulses bilaterally. Skin: No decubitus ulcer, exanthem, or enanthem. Genito-urinary: No urethral discharge. No sanchez catheter. Neurology: Alert and oriented in regards to person, place, time, and situation. DTR+ and symmetric. 5/5 motor strength in all 4 extremities, both proximally and distally. No pronator drift. No facial droop. No dysarthria. Psychiatry: No homicidal ideation. No suicidal ideation. No flat affect; smiles appropriately. Discharge Plan Discharge Items Patient Disposition: Home - Self-Care Reason For Visit: RENAL STONE Discharge Diagnosis: 6mm mid-right ureteral stone, s/p cystoscopy and right ureteral stent (09/21/2024, 2:07pm, [facility] Urologist Dr. Candido Lizarraga). Condition on Discharge: Good Activity: Resume your previous activity Lifting: Gradually increase as tolerated Bathing: No limitations Sexual Activity: When tolerated Exercise/Sports: As tolerated Driving/Machine Use: No limitations Weightbearing: Full weightbearing Non-emergency contact: Primary Care Provider Call non-emergency contact if: you have any medication questions Follow-up/Referrals: Candido Lizarraga MD [Physician] - (See your Urologist Dr. Candido Lizarraga within 5-7 days of hospital discharge.) Kesha Lopez MD [Primary Care Provider] - Diet: Heart Healthy Addtl Attending Provider Instructions: See your PCP Dr. Kesha Lopez and your Urologist Dr. Candido Lizarraga, both within 5 days of hospital discharge. Pending Studies at Discharge: No Stand-Alone Forms: My [facility], Smoking Cessation Medications and DC Order Prescriptions: New tamsulosin 0.4 mg Capsule 0.4 mg PO QAM Qty: 30 0RF Continued aspirin [Morris Low Dose Aspirin] 81 mg Tablet,Delayed Release (Dr/Ec) 81 mg PO QAM cholestyramine (with sugar) 4 gram Powder 4 g PO QAM cholecalciferol (vitamin D3) [Vitamin D3] 1,000 unit Tablet 1,000 unit PO QAM omeprazole 40 mg Capsule,Delayed Release(Dr/Ec) 40 mg PO QAM metoprolol succinate 50 mg tablet extended release 24 hr 25 mg PO QPM Rx Instructions: 1/2 TABLET AT BEDTIME Eliquis 5 mg tablet 5 mg PO BID Held Entresto 49-51 mg tablet 1 tab PO BID Hold Instructions: Resume on 09/27/24. Hold off resuming your Entresto (sacubitril 49mg - valsartan 51mg) PO bid until 09/27/2024, or until you undergo repeat creatinine level testing with your PCP Dr. Kesha Lopez, or your Urologist Dr. Candido Lizarraga, to make sure that your acute kidney injury with admission creatinine 1.46 mg/dL (09/20/2024, 9:28pm) and discharge creatinine 1.70 mg/dL (09/21/2024, 6:39am) is resolving. Discharge Orders: Discharge Order (Routine); Ordered 09/21/24 Ordered By: Candido Sullivan Discharge Order- CHF (Routine); Ordered 09/21/24 Ordered By: Candido Mack/Other Patient Handouts: Understanding Kidney Stones, Preventing Kidney Stones Admission Data Admit Date/Time: 09/21/24 00:46 Attending Provider: Candido Sullivan Admit Provider: Sheba Chapin Primary Care Provider: Kesha Lopez Other Providers: Sheba Chapin; Trenton Carty Other Interventions: Discharge Summary Assessment (RN) Last Done: 09/21/24 16:33 Hospital Stay Data Consultations 09/20/24 23:27 ED Decision to Admit Stat 09/20/24 23:59 Consult Urology Routine Procedures Performed Operation Date: 09/21/24 12:15 Actual Procedures p Cystoscopy, Right Ureteral Stent Placement(Right) - Candido Lizarraga MD Diagnostic Imagining Performed 09/20/24 21:49 CT abd pelvis IV con only Stat 09/21/24 FL retrograde includes kub Routine Pending Results Patient Have Any Pending Studies at Discharge: No Discharge Instructions Given to Patient (Per Discharging Provider) See your PCP Dr. Kesha Lopez and your Urologist Dr. Candido Lizarraga, both within 5 days of hospital discharge. Total Time Total Time Spent Total Time Spent (In Minutes): 35 minutes. Of this time period, 19 minutes were spent in coordinating patient's discharge. Coding Level of Care Code 95095 INP/OBS DISCH >30 MIN Diagnoses Ureterolithiasis N20.1 GERD (gastroesophageal reflux disease) K21.9 Atrial fibrillation I48.91 Hypertension I10 Sleep apnea G47.30
[2024-09-21 17:17] VITALS: BP 125/71; TEMP 98.2
[2024-09-21] MEDS ORDERED: METOPROLOL SUCC 25MG EXT REL TAB PO SCH (21:00)
--- NOTE | 2024-09-23 06:29 | Electrocardiogram Report ---
Test Reason : Blood Pressure : */* mmHG Vent. Rate : 63 BPM Atrial Rate : 62 BPM P-R Int : * ms QRS Dur : 144 ms QT Int : 478 ms P-R-T Axes : * 1 125 degrees QTcB Int : 489 ms AV dual-paced rhythm with occasional Premature ventricular complexes Abnormal ECG When compared with ECG of 20-Aug-2022 17:16, AV pacing has replaced Atrial fibrillation Vent. rate has decreased by 32 bpm Confirmed by Dayday Diop ([id number]) on 09/23/2024 6:28:34 AM Referred By: REFERRED SELF Confirmed By: Dayday Diop
--- NOTE | 2024-09-24 18:38 | Coding Query ---
To promote full compliance with coding requirements relating to patient care, provider participation is requested in all cases of assistant news director uncertainty. Please assist us with the question(s) below: Coding Question(s): The diagnosis(es) below was documented in the ER, then subsequently fell off all further documentation. Please indicate if it is still a possible diagnosis or ruled out. Physician's Response(s): ACUTE UTI ( ) Diagnosed and POA ( ) Diagnosed and not POA ( ) Ruled out ( ) Other (please specify) MTDD
--- NOTE | 2024-09-24 18:45 | Coding Query ---
CODING QUERY To promote full compliance with coding requirements relating to patient care, provider participation is requested in all cases of civil rights attorney uncertainty. Please assist us with the question(s) below: Coding Question(s): The Discharge Summary documents, under Plan, " chronic RV systolic CHF with RV systolic function reduced and preserved LVEF 70% (as noted on 06/21/2023, 9:55am TTE, CARDS Dr. Ba Almendarez), chronic diastolic CHF with preserved LVEF 65%, normal RV systolic function, and grade I LV diastolic dysfunction (as noted on 03/29/2017, 12:40pm TTE, CARDS Dr. Ba Almendarez)", and there is no other documentation in the record of chronic systolic or diastolic CHF, and to be sure of correct coding, please specify below, in your clinical opinion, if the patient is treated for chronic CHF and the type of chronic CHF below: ( ) treated for Chronic Diastolic CHF ( ) treated for Chronic Systolic CHF ( x ) treated for Chronic Combined Systolic and Diastolic CHF ( ) not treated for Chronic CHF ( ) Other: Please Specify Physician's Response(s): Thank you Stacey Huber Principal Diagnosis: "that condition established after study, to be chiefly responsible for occasioning the admission of the patient to the hospital for care." Co-Existing Principal Diagnosis: "when two or more diagnoses equally meet the criteria for principal diagnosis as determined by the circumstances of admission, diagnostic work up, and/or therapy provided, and the Alphabetic Index, Tabular List, or another coding guideline does not provide sequencing direction, any one of the diagnoses may be sequenced first." "When the physician has documented what appears to be a current diagnosis in the body of the record, but has not included the diagnosis in the final diagnostic statement, the physician should be asked whether the diagnosis should be added." (Source Coding [facility] 2 QTR90. p3-4) STEVE
--- NOTE | 2024-10-05 08:56 | Anesthesiology Progress Note ---
Date of Service September 21, 2024 Anesthesia Post Procedure Vital Signs Vital Signs: Temp Pulse Pulse Pulse Resp BP BP 09/21/24 12:50 36.5 C 64 20 115/67 09/21/24 07:23 36.6 C 63 18 127/82 09/21/24 02:16 36.7 C 61 18 154/82 H 09/21/24 02:04 65 19 09/20/24 23:33 66 18 129/75 09/20/24 21:48 64 18 09/20/24 21:34 61 16 161/91 H 09/20/24 21:32 63 09/20/24 21:01 36.5 C 74 16 167/90 H Pulse Ox O2 Del Method FiO2 09/21/24 12:50 92 Room Air 09/21/24 07:23 95 Room Air 09/21/24 02:16 94 Room Air 09/21/24 02:04 93 21 09/20/24 23:33 95 Room Air 09/20/24 21:48 91 Room Air 09/20/24 21:34 94 Room Air 09/20/24 21:32 09/20/24 21:01 96 Room Air Pain Intensity Right Flank: Pain Intensity: 4 Transfer of Care Handoff Completed per policy Notes Mental Status: alert / awake / arousable and participated in evaluation Patient Amnestic to Procedure: Yes Nausea / Vomiting: adequately controlled Pain: adequately controlled Airway Patency, RR, SpO2: stable & adequate BP & HR: stable & adequate Hydration State: stable & adequate Anesthetic Complications: no major complications apparent
== END 2024-09-21 17:50 | disposition home or self-care (01) ==
LOC: ED 20:59 → INTOOBSV 09-21 00:46 → 3N 09-21 00:46 → SUATTDRO 09-21 00:46 → 3N 09-21 01:14